=== PATIENT | female | born 1995 | race Caucasian/White ===

== ENCOUNTER 2022-01-05 20:04 | Emergency (ER) | payer BC, SELFPAY ==
[2022-01-05 20:23] VITALS: BP 117/72; PULSE 97; RESP 16; TEMP 36.6; O2SAT 96; BMI 44.2
--- NOTE | 2022-01-05 20:31 | XRR_ITS ---
PROCEDURE INFORMATION: Exam: XR Chest Exam date and time: 01/05/2022 8:52 PM Age: 26 years old Clinical indication: Chest wall pain; Additional info: Cp TECHNIQUE: Imaging protocol: Radiologic exam of the chest. Views: 1 view. COMPARISON: CR Chest 2 views* [id number] 11/21/2016 8:27 PM FINDINGS: Lungs: Unremarkable. No consolidation. Pleural spaces: Unremarkable. No pleural effusion. No pneumothorax. Heart/Mediastinum: Unremarkable. No cardiomegaly. Bones/joints: Unremarkable. XR/XR chest 1V portable [id number] IMPRESSION: No acute findings.
--- NOTE | 2022-01-05 20:41 | ECG_ITS ---
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 Measurements Intervals [place] Rate: 91 P: 46 ME: 190 QRS: 46 QRSD: 88 T: 39 QT: 339 QTc: 417 Interpretive Statements SINUS RHYTHM POSSIBLE LEFT ATRIAL ENLARGEMENT [-0.1mV P-WAVE IN V1/V2] Compared to ECG 11/21/2016 19:32:27 No significant changes Electronically Signed On 01-07-2022 8:01:03 CDT by Lisset Weller M.D. [id number]
[2022-01-05 20:50] VITALS: BP 117/72; PULSE 97; RESP 16; TEMP 36.6; O2SAT 96
--- NOTE | 2022-01-05 20:50 | W.ED.CHESTPA ---
HPI - Chest Pain General: Chief Complaint: Chest Pain Stated Complaint: chest pain, sob Time Seen by Provider: 01/05/22 20:34 History of Present Illness: Patient is a 26-year-old female comes to the ED with chest pain. Patient has a history of anxiety. Denies any history of panic attacks. Symptoms started this morning when she woke up. She felt a sharp pain in right side of chest. Chest pain resolved in the morning after she coughed. Then while at work the chest pain came back and she describes it as an aching pain in the right side of the chest. She also endorses having some irritation type feeling in throat. She rates her pain currently a 3 out of 10. Chest pain worsens if she takes a deep breath. Patient endorses to drinking a lot of soda daily. Denies any diaphoresis, nausea/vomiting, fevers, chills, abdominal pain, bladder or bowel symptoms. Denies any chance of being . Associated symptoms: Reports dyspnea; Deny abdominal pain, fever(s), nausea, palpitations or vomiting Review of Systems Const: Denies: fever(s), chills or fatigue Eyes: Denies: change in vision or eye discomfort ENMT: Denies: throat pain, odynophagia, nasal discharge or nasal congestion Card: Reports: chest pain; Denies: palpitations, edema, swelling of feet/ankles, dyspnea on exertion or orthopnea Resp: Reports: dyspnea; Denies: productive cough or non-productive cough GI: Denies: abdominal pain, nausea, vomiting, diarrhea, constipation or hematochezia : Denies: flank pain, dysuria or hematuria Musc: Denies: neck pain, back pain or extremity swelling Skin/Breast: Denies: rash or new lesions Neuro: Denies: headache(s), numbness in extremities or weakness in extremities PFS ED PFSH: Medical History (Updated 01/06/22 @ 03:20 by DAVIE Martínez) No pertinent family history Surgical History (Updated 01/06/22 @ 03:20 by DAVIE Martínez) No pertinent past surgical history Female Reproductive History: Date of last menstrual period: 12/27/21 Physical Exam Const: COMMON NORMALS: no acute distress, patient oriented x3 and alert GENERAL APPEARANCE: cooperative NUTRITIONAL APPEARANCE: obese HENMT: COMMON NORMALS: normocephalic HEAD & SCALP: normocephalic MOUTH: Normal oral and palatal mucosa present THROAT: posterior oropharynx normal and uvula midline Neck/C-Spine: COMMON NORMALS: supple GENERAL: Yes normal visual inspection Resp: COMMON NORMALS: normal respiratory effort, No retractions, No use of accessory muscles and clear to auscultation bilaterally AUSCULTATION: clear to auscultation bilaterally Cardio: COMMON NORMALS: regular rate, regular rhythm, S1 normal heart sound present, S2 normal heart sound present, No gallops present (Cardio), No clicks present (Cardio), No murmurs present (Cardio) and Peripheral pulses 2+ throughout RATE: regular rate RHYTHM: regular rhythm HEART SOUNDS: S1 normal heart sound present and S2 normal heart sound present PERIPHERAL PULSES: Peripheral pulses 2+ throughout GI: COMMON NORMALS: Normal to inspection, nondistended, normoactive bowel sounds present, Soft to palpation, non-tender and no masses PALPATION: Yes Soft to palpation : COMMON NORMALS: Yes no CVA tenderness BLADDER/KIDNEY EXAM: Yes no CVA tenderness Back/Pelvis: COMMON NORMALS: no CVA tenderness Extremity: COMMON NORMALS: normal to inspection Neuro: COMMON NORMALS: patient oriented x3 SENSORIUM/ORIENTATION: Yes alert GAIT: Yes Normal gait present Skin: GENERAL SKIN EXAM: dry skin Course ED course: Patient's symptoms improved after she got GI cocktail and p.o. Ativan. Vital Signs: Vital signs: Vital Signs Temperature 97.9 F 01/05/22 20:50 Pulse Rate 97 01/05/22 20:50 Respiratory Rate 16 01/05/22 20:50 Blood Pressure 117/72 01/05/22 20:50 Pulse Oximetry 96 01/05/22 20:50 Oxygen Delivery Me thod 01/05/22 20:50 MDM - Chest Pain Medical Decision Making Patient is a 26-year-old female comes to the ED with chest pain. Vitals are stable and patient appears nontoxic in no acute distress or pain. The rest of exam is benign. Chest x-ray showed no acute findings. CBC and CMP were unremarkable. Troponin negative. hCG negative. EKG showed normal sinus rhythm with no ST segment elevation or depression seen. Patient was given GI cocktail and p.o. Ativan and her symptoms improved. She was diagnosed with noncardiac chest pain and was stable for discharge home. Told to follow-up with her PCP in the next week for reevaluation. Return to ED precautions given. Patient understood and agreed with plan. Lab Data I reviewed the patient's lab results. : 01/05/22 21:01/05/22 21: Radiology Impressions Chest X-Ray 01/05/22: IMPRESSION: No acute findings. Laboratory Results WBC 9.6 10^3/uL (4.0-10.0) 01/05/22: RBC 5.48 10^6/uL (4.1-5.3) H 01/05/22 21: Hgb 13.5 g/dL (11.5-15.3) 01/05/22: Hct 44.2 % (37.0-47.0) 01/05/22: MCV 80.7 fl (81-99) L 01/05/22 21: MCH 24.6 pg (28.0-34.0) L 01/05/22: MCHC 30.5 g/dL (30.0-36.0) 01/05/22: RDW 17.2 % (12.1-15.1) H 01/05/22: Plt Count 263 10^3/cmm (130-400) 01/05/22: MPV 10.7 fL (7.4-10.4) H 01/05/22 21: Neut % (Auto) 62.8 % 01/05/22: Lymph % (Auto) 30.2 % 01/05/22: [place] % (Auto) 4.7 % 01/05/22: Eos % (Auto) 1.6 % 01/05/22: Baso % (Auto) 0.6 % 01/05/22: Neut # (Auto) 6.01 10^3/uL (1.8-7.7) 01/05/22: Lymph # (Auto) 2.9 10^3/uL (0.8-4.8) 01/05/22: [place] # (Auto) 0.5 10^3/uL (0.2-0.9) 01/05/22: Eos # (Auto) 0.2 10^3/uL (0.0-0.8) 01/05/22 21:26 Baso # (Auto) 0.1 10^3/uL (0.0-0.1) 01/05/22 21: Nucleated RBC % (auto) 0 % 01/05/22 21: Nucleated RBCs # 0.0 /100WBC 01/05/22 21:26 Sodium 138 mmol/L (136-145) 01/05/22 21:26 Potassium 3.5 mmol/L (3.5-5.1) 01/05/22 21:26 Chloride 103 mmol/L (98-107) 01/05/22 21:26 Carbon Dioxide 25 mmol/L (22-29) 01/05/22 21:26 Anion Gap 13.5 (5-19) 01/05/22 21:26 BUN 5 mg/dL (6-20) L 01/05/22 21: Creatinine 0.7 mg/dL (0.5-0.9) 01/05/22 21:26 GFR Calculation 99.6 mL/min (90-130) 01/05/22 21:26 Glucose 93 mg/dL (65-115) 01/05/22 21: Calculated Osmolality 283 mOsm/kg (285-295) L 01/05/22 21:26 Calcium 9.3 mg/dL (8.5-10.5) 01/05/22 21: Total Bilirubin 0.2 mg/dL (0.15-1.2) 01/05/22 21: AST 17 U/L (0-32) 01/05/22 21: ALT 20 U/L (0-33) 01/05/22 21:26 Alkaline Phosphatase 68 U/L (35-105) 01/05/22 21:26 Troponin T Gen 5 ng/L 6 ng/L (0-10) 01/05/22 21:26 Total Protein 7.5 g/dL (6.6-8.7) 01/05/22 21: Albumin 3.9 g/dL (3.5-5.2) 01/05/22 21: Globulin 3.6 g/dL (1.3-4.6) 01/05/22 21:26 HCG, Qual Negative (Negative) 01/05/22 21:26 EKG Data EKG 1: EKG interpretation date: 01/05/22 Interpretation: Sinus rhythm, no ST segment elevation or depression seen. 91 bpm. Discharge Plan Discharge Patient Disposition: Home Clinical Impression: Non-cardiac chest pain Condition: Stable Discharge Orders: Discharge ED (Routine); Ordered 01/05/22 Ordered By: Spenser Omalley Referrals: Reginaldo Sanchez, DO [Primary Care Provider] - Discharge Diet: Regular Discharge Activity: Increase activity as tolerated Patient Instructions: Noncardiac Chest Pain (ED) Activity Restrictions/Additional Instructions: Follow-up with medical provider as directed in the next 5 to 7 days for reevaluation. Return to the ER or your medical provider if condition worsens. Please read and understand discharge instructions. Thank you for choosing [facility] for your healthcare needs today. Please realize this is an emergency room and that we are providing you with a medical screening exam and this may not be complete and all inclusive of all the testing and or work up that you may need to determine your ailment or severity of your illness. It is very important that you follow up as instructed or that you return to the Emergency Department should you have concerns or if your condition changes or worsens in any way. Coding Level of Care Code ED Garden Machinery Mechanic for Chg Fwd Exam Comprehensive
[2022-01-05] MEDS: lidocaine 2% viscous 15 ML, aluminum-mag hydrox-simethicon 30 ML, sucralfate oral liq 1 GM PO (20:57)
[2022-01-05] MEDS: LORazepam 1 mg Tablet PO (20:58)
[2022-01-05 21:35] LABS: Basophils # 0.1 10^3/uL (0.0-0.1); Basophils % 0.6 %; Eosinophils # 0.2 10^3/uL (0.0-0.8); Eosinophils % 1.6 %; Hematocrit 44.2 % (37.0-47.0); Hemoglobin 13.5 g/dL (11.5-15.3); Lymphocytes # 2.9 10^3/uL (0.8-4.8); Lymphocytes % 30.2 %; Mean Corpuscular HGB Conc 30.5 g/dL (30.0-36.0); Mean Corpuscular Hemoglobin 24.6 pg (28.0-34.0); Mean Corpuscular Volume 80.7 fl (81-99); Mean Platelet Volume 10.7 fL (7.4-10.4); Monocytes # 0.5 10^3/uL (0.2-0.9); Monocytes % 4.7 %; Neutrophils # 6.01 10^3/uL (1.8-7.7); Neutrophils % 62.8 %; Nucleated Red Blood Cells % 0 %; Platelet Count 263 10^3/cmm (130-400); Red Blood Count 5.48 10^6/uL (4.1-5.3); Red Cell Distribution Width 17.2 % (12.1-15.1); White Blood Count 9.6 10^3/uL (4.0-10.0)
[2022-01-05 21:53] LABS: HCG, Serum Qual Negative (Negative)
[2022-01-05 22:03] LABS: Alanine Aminotransferase 20 U/L (0-33); Albumin Level 3.9 g/dL (3.5-5.2); Alkaline Phosphatase 68 U/L (35-105); Anion Gap 13.5 (5-19); Aspartate Amino Transferase 17 U/L (0-32); Blood Urea Nitrogen 5 mg/dL (6-20); Calcium 9.3 mg/dL (8.5-10.5); Carbon Dioxide 25 mmol/L (22-29); Chloride 103 mmol/L (98-107); Globulin 3.6 g/dL (1.3-4.6); Glomerular Filtration Rate 99.6 mL/min (90-130); Glucose 93 mg/dL (65-115); Osmolality Calculated 283 mOsm/kg (285-295); Potassium 3.5 mmol/L (3.5-5.1); Sodium 138 mmol/L (136-145); Total Bilirubin 0.2 mg/dL (0.15-1.2); Total Protein 7.5 g/dL (6.6-8.7)
[2022-01-05 22:04] LABS: Troponin T (5th) Once 6 ng/L (0-10)
== END 2022-01-05 22:44 | disposition home or self-care (01) ==
PROVIDERS: Emergency Provider Physician Assistant; PCP Family Medicine
DX: R07.89 Other chest pain (principal)
CPT/HCPCS: 71045; 80053; 84484; 84703; 85025; 93005; 99284

== ENCOUNTER 2022-05-05 11:52 | Emergency (ER) | payer BC, SELFPAY ==
[2022-05-05] VITALS (7 sets, daily range): BP systolic 128; BP diastolic 70; PULSE 48–101; RESP 15–24; TEMP 36.3; O2SAT 96–100
--- NOTE | 2022-05-05 12:05 | ED_ITS ---
HPI - Abdominal Pain General: Chief Complaint: Abdominal Pain Stated Complaint: left pain on the side and hot flashes Time Seen by Provider: 05/05/22 12:04 History of Present Illness: Ms. Wong is a 26-year-old lady with history of ovarian cysts presenting to the emergency department due to severe left lower quadrant abdominal pain. Onset of symptoms was at approximately 1030 and acute. She endorses perhaps generalized nausea this morning however has otherwise been at her baseline health. Severe left lower quadrant abdominal pain that has been unrelenting. Associated nausea but no vomiting. No changes in urination or bowel movements. Denies similar episodes in the past. No other specific changes in health, exacerbating, or alleviating factors identified. Onset (ago): hour(s) Location: LLQ Severity: severe Migration to: no migration Exacerbating factors: nothing Relieving factors: nothing Associated Symptoms: Reports nausea Related Data: Date of Last Menstrual Period: 12/27/21 Review of Systems General: Reports: 10 or more systems reviewed and unremarkable except in HPI and below GI: Reports: nausea PFSH ED PFSH: Medical History (Updated 05/05/22 @ 15:28 by Partha Prince MD) No pertinent family history Surgical History (Updated 01/06/22 @ 03:20 by DAVIE Martínez) No pertinent past surgical history Female Reproductive History: Date of last menstrual period: 12/27/21 Physical Exam Const: COMMON NORMALS: alert GENERAL APPEARANCE: cooperative, well developed and in distress (Distress due to pain) HENMT: COMMON NORMALS: normocephalic and atraumatic HEAD & SCALP: normocephalic and atraumatic Eye: COMMON NORMALS: conjunctivae normal CONJUNCTIVA: Yes conjunctivae normal SCLERA: sclerae normal Neck/C-Spine: COMMON NORMALS: supple GENERAL: Yes trachea midline Resp: COMMON NORMALS: normal respiratory effort EFFORT & INSPECTION: Yes able to speak in complete sentences Cardio: COMMON NORMALS: regular rate and regular rhythm RATE: regular rate RHYTHM: regular rhythm GI: COMMON NORMALS: Soft to palpation PALPATION: Yes Soft to palpation and No Tenderness to palpation present (GI) : COMMON NORMALS: Yes no CVA tenderness BLADDER/KIDNEY EXAM: Yes no CVA tenderness Back/Pelvis: COMMON NORMALS: no CVA tenderness Extremity: GENERAL: Yes normal exam except as noted and No edema Neuro: COMMON NORMALS: moves all extremities SENSORIUM/ORIENTATION: Yes alert and No Orientation impaired Psych: COMMON NORMALS: mental status grossly normal and Normal thought process present THOUGHT PROCESS: Normal thought process present Course Vital Signs: Vital signs: Vital Signs Temperature 97.4 F L 05/05/22 12:00 Pulse Rate 71 05/05/22 17:29 Respiratory Rate 15 05/05/22 17:29 Blood Pressure 128/70 05/05/22 12:00 Pulse Oximetry 99 05/05/22 17:29 Oxygen Delivery Me thod 05/05/22 17:29 MDM - Abdominal Pain Medical Decision Making 26-year-old female presenting with left-sided abdominal pain and generalized illness. Uncomfortable appearing on initial exam however no evidence of acute peritonitis or surgical abdomen. Labs with mild hemoconcentration and dehydration, no other significant abnormality, negative urinalysis and hCG. Given severity and location of symptoms in addition to ovarian cyst history sta rted imaging with pelvic ultrasound which was negative for ovarian torsion. Patient does have right sided large cysts and is tender though still describes left-sided symptoms. Given absence of clear pathology and continued symptoms CT imaging is felt to be appropriate. CT negative for acute pathology. Cholelithiasis/incidental findings noted. Patient had moderate improvement in symptoms with multiple doses of analgesia and antiemetic. Most likely etiology of patient's symptoms is unspecified abdominal pain possibly related to ovarian cysts without evidence of acute surgical pathology. The results of ED evaluation were discussed with the patient including prescriptions and/or symptomatic cares (if applicable) including appropriate and responsible use, followup plan, and return precautions. The patient verbalized understanding and felt safe for discharge. Medical Records I reviewed the patient's medical records. Lab Data I reviewed the patient's lab results. 05/05/22 12:32 05/05/22 13:34 Labs/Radiology: Radiology Impressions Pelvis Ultrasound 05/05/22 12:14 IMPRESSION: 1. There are 2 complex right ovary cyst 2. Negative uterus and endometrium 3. Negative left ovary Abdomen/Pelvis CT 05/05/22 13:28 IMPRESSION: 1. Septated pelvic cyst likely originating in the ovary. 2. Unremarkable appearing uterus. 3. Cholelithiasis 4. Otherwise negative examination Laboratory Results WBC 8.8 10^3/uL (4.0-10.0) 05/05/22 12:32 RBC 5.59 10^6/uL (4.1-5.3) H 05/05/22 12:32 Hgb 13.5 g/dL (11.5-15.3) 05/05/22 12:32 Hct 43.2 % (37.0-47.0) 05/05/22 12:32 MCV 77.3 fl (81-99) L 05/05/22 12:32 MCH 24.2 pg (28.0-34.0) L 05/05/22 12:32 MCHC 31.3 g/dL (30.0-36.0) 05/05/22 12:32 RDW 15.9 % (12.1-15.1) H 05/05/22 12:32 Plt Count 248 10^3/cmm (130-400) 05/05/22 12:32 MPV 11.5 fL (7.4-10.4) H 05/05/22 12:32 Neut % (Auto) 42.2 % 05/05/22 12:32 Lymph % (Auto) 48.2 % 05/05/22 12:32 [place] % (Auto) 5.7 % 05/05/22 12:32 Eos % (Auto) 2.8 % 05/05/22 12:32 Baso % (Auto) 0.8 % 05/05/22 12:32 Neut # (Auto) 3.72 10^3/uL (1.8-7.7) 05/05/22 12:32 Lymph # (Auto) 4.3 10^3/uL (0.8-4.8) 05/05/22 12:32 [place] # (Auto) 0.5 10^3/uL (0.2-0.9) 05/05/22 12:32 Eos # (Auto) 0.3 10^3/uL (0.0-0.8) 05/05/22 12:32 Baso # (Auto) 0.1 10^3/uL (0.0-0.1) 05/05/22 12:32 Nucleated RBC % (auto) 0 % 05/05/22 12:32 Nucleated RBCs # 0.0 /100WBC 05/05/22 12:32 Sodium 135 mmol/L (136-145) L 05/05/22 13:34 Potassium 3.3 mmol/L (3.5-5.1) L 05/05/22 13:34 Chloride 102 mmol/L (98-107) 05/05/22 13:34 Carbon Dioxide 22 mmol/L (22-29) 05/05/22 13:34 Anion Gap 14.3 (5-19) 05/05/22 13:34 BUN 8 mg/dL (6-20) 05/05/22 13:34 Creatinine 0.5 mg/dL (0.5-0.9) 05/05/22 13:34 GFR Calculation 146.9 mL/min (90-130) H 05/05/22 13:34 Glucose 124 mg/dL (65-115) H 05/05/22 13:34 Calculated Osmolality 280 mOsm/kg (285-295) L 05/05/22 13:34 Calcium 9.4 mg/dL (8.5-10.5) 05/05/22 13:34 Total Bilirubin 0.2 mg/dL (0.15-1.2) 05/05/22 13:34 AST 19 U/L (0-32) 05/05/22 13:34 ALT 15 U/L (0-33) 05/05/22 13:34 Alkaline Phosphatase 67 U/L (35-105) 05/05/22 13:34 Total Protein 8.0 g/dL (6.6-8.7) 05/05/22 13:34 Albumin 4.1 g/dL (3.5-5.2) 05/05/22 13:34 Globulin 3.9 g/dL (1.3-4.6) 05/05/22 13:34 Lipase 31 U/L (13-60) 05/05/22 13:34 HCG, Qual Negative (Negative) 05/05/22 13:34 Urine Color Yellow (Yellow) 05/05/22 14:44 Urine Appearance Clear (CLEAR) 05/05/22 14:44 Urine pH 5 (5-7) 05/05/22 14:44 Ur Specific [place] 1.015 (1.005-1.030) 05/05/22 14:44 Urine Protein Neg (Negative) 05/05/22 14:44 Urine Glucose (UA) Norm (Normal) 05/05/22 14:44 Urine Ketones 1+ (Negative) H 05/05/22 14:44 Urine Blood Neg (Negative) 05/05/22 14:44 Urine Nitrate Negative (Negative) 05/05/22 14:44 Urine Bilirubin Neg (Negative) 05/05/22 14:44 Urine Urobilinogen Norm mg/dL (Negative) 05/05/22 14:44 Ur Leukocyte Esterase Negative (Negative) 05/05/22 14:44 Discharge Plan Discharge Patient Disposition: Home Clinical Impression: Abdominal pain, Ovarian cyst Condition: Stable Prescriptions: New ondansetron 4 mg tablet,disintegrating 4 mg PO Q8H PRN (Reason: nausea and vomiting) Qty: 15 0RF oxycodone 5 mg tablet 5 mg PO Q4H PRN (Reason: pain) Qty: 10 0RF Discharge Orders: Discharge ED (Routine); Ordered 05/05/22 Ordered By: Partha Prince Referrals: Reginaldo Sanchez DO [Primary Care Provider] - Partha Prince MD [Emergency Provider] - Discharge Diet: Usual diet Discharge Activity: Increase activity as tolerated Patient Instructions: Ovarian Cyst (ED), Abdominal Pain (ED), Opioid Safety, Pain Management Activity Restrictions/Additional Instructions: Thank you for visiting the emergency department. You were seen and evaluated for abdominal pain. The exact cause of your abdominal pain is unclear however may be related to large right ovarian cysts. I recommend follow-up with your primary care provider and a SELF PROPELLED MINING MACHINE OPERATOR physician. You may use [id number] medications such as acetaminophen and ibuprofen for pain however please do not exceed the daily recommended dosage as listed on the packaging and please keep in mind that many namebrand medications contain the same active ingredients. Please avoid these medications if previously instructed to do so by another physician due to other underlying medical condition. Return to the emergency department for uncontrolled symptoms or anything else that you are concerned about feel needs emergency department evaluation. Coding Level of Care Code ED Senior Tax Manager for Dorcas Fwbaltazar Exam Comprehensive
--- NOTE | 2022-05-05 12:14 | USR_ITS ---
PROCEDURE INFORMATION: Exam: US Nonobstetric Pelvis; Complete Exam date and time: 05/05/2022 12:42 PM Age: 26 years old Clinical indication: Pelvic pain; Additional info: Llq pain, HX cysts, eval torsion TECHNIQUE: Imaging protocol: Transabdominal pelvic nonobstetric ultrasound. Complete exam. Real time ultrasound with image documentation. COMPARISON: CT kidney stone [id number] 02/27/2016 12:27 AM FINDINGS: Uterus: Uterus is unremarkable 9.2 cm x 4.3 cm by 4.6 cm. Endometrial stripe is 3.0 mm Right ovary/adnexa: Complex cyst with low level internal echoes 6.3 cm x 5.8 cm x 4 cm, a 2nd complex cyst is present in the central right ovary 3 cm x 4 .9 cm x 4.1 cm Left ovary/adnexa: Ovary is normal. No mass. Normal blood flow. 3.3 cm x 2.3 cm x 3.3 cm by Intraperitoneal space: No intraperitoneal fluid. Urinary bladder: Normal. Vasculature: No mass. Normal blood flow. US/US pelvic complete* [id number] IMPRESSION: 1. There are 2 complex right ovary cyst 2. Negative uterus and endometrium 3. Negative left ovary
[2022-05-05] MEDS: ondansetron 2 mg/ML SDV 2 mL 4 MG IVP ×2 (12:22→15:50)
[2022-05-05] MEDS: morphine 4 mg/mL SDV 1 mL IVP (12:22)
[2022-05-05 12:43] LABS: Basophils # 0.1 10^3/uL (0.0-0.1); Basophils % 0.8 %; Eosinophils # 0.3 10^3/uL (0.0-0.8); Eosinophils % 2.8 %; Hematocrit 43.2 % (37.0-47.0); Hemoglobin 13.5 g/dL (11.5-15.3); Lymphocytes # 4.3 10^3/uL (0.8-4.8); Lymphocytes % 48.2 %; Mean Corpuscular HGB Conc 31.3 g/dL (30.0-36.0); Mean Corpuscular Hemoglobin 24.2 pg (28.0-34.0); Mean Corpuscular Volume 77.3 fl (81-99); Mean Platelet Volume 11.5 fL (7.4-10.4); Monocytes # 0.5 10^3/uL (0.2-0.9); Monocytes % 5.7 %; Neutrophils # 3.72 10^3/uL (1.8-7.7); Neutrophils % 42.2 %; Nucleated Red Blood Cells % 0 %; Platelet Count 248 10^3/cmm (130-400); Red Blood Count 5.59 10^6/uL (4.1-5.3); Red Cell Distribution Width 15.9 % (12.1-15.1); White Blood Count 8.8 10^3/uL (4.0-10.0)
[2022-05-05] MEDS: HYDROmorphone 1 mg/mL INJ 1 mL 0.5 MG IVP (13:01)
--- NOTE | 2022-05-05 13:28 | CTR_ITS ---
PROCEDURE INFORMATION: Exam: CT Abdomen And Pelvis Without Contrast Exam date and time: 05/05/2022 2:21 PM Age: 26 years old Clinical indication: Abdominal pain; Localized; Left lower quadrant (llq); Additional info: Severe llq pain TECHNIQUE: Imaging protocol: Computed tomography of the abdomen and pelvis without contrast. Radiation optimization: All CT scans at this facility use at least one of these dose optimization techniques: automated exposure control; mA and/or kV adjustment per patient size (includes targeted exams where dose is matched to clinical indication); or iterative reconstruction. COMPARISON: CT kidney stone [id number] 02/27/2016 12:27 AM RADIATION DOSE METRICS: Total DLP (mGy-cm): 1043.63 FINDINGS: Liver: Normal. No mass. Gallbladder and bile ducts: Multiple calcified stones. No ductal dilation. Pancreas: Normal. No ductal dilation. Spleen: Normal. No splenomegaly. Adrenal glands: Normal. No mass. Kidneys and ureters: Normal. No hydronephrosis. Stomach and bowel: Unremarkable. No obstruction. No mucosal thickening. Appendix: No evidence of appendicitis. Intraperitoneal space: Unremarkable. No free air. No significant fluid collection. Vasculature: Unremarkable. No abdominal aortic aneurysm. Lymph nodes: Unremarkable. No enlarged lymph nodes. Urinary bladder: Unremarkable as visualized. Reproductive: Septated cyst in the central pelvis measuring 10 cm x 6 cm. This finding appears to be adjacent to the fundus of the uterus and may represent a ovarian cyst. Comparison to prior examination this finding was not present the uterus is otherwise unremarkable Bones/joints: Osteoarthritis left sacroiliac joint No acute fracture. Soft tissues: Unremarkable. CT/CT kidney stone [id number] IMPRESSION: 1. Septated pelvic cyst likely originating in the ovary. 2. Unremarkable appearing uterus. 3. Cholelithiasis 4. Otherwise negative examination
[2022-05-05 13:59] LABS: HCG, Serum Qual Negative (Negative)
[2022-05-05 14:11] LABS: Alanine Aminotransferase 15 U/L (0-33); Albumin Level 4.1 g/dL (3.5-5.2); Alkaline Phosphatase 67 U/L (35-105); Anion Gap 14.3 (5-19); Aspartate Amino Transferase 19 U/L (0-32); Blood Urea Nitrogen 8 mg/dL (6-20); Calcium 9.4 mg/dL (8.5-10.5); Carbon Dioxide 22 mmol/L (22-29); Chloride 102 mmol/L (98-107); Globulin 3.9 g/dL (1.3-4.6); Glomerular Filtration Rate 146.9 mL/min (90-130); Glucose 124 mg/dL (65-115); Lipase 31 U/L (13-60); Osmolality Calculated 280 mOsm/kg (285-295); Potassium 3.3 mmol/L (3.5-5.1); Sodium 135 mmol/L (136-145); Total Bilirubin 0.2 mg/dL (0.15-1.2)
[2022-05-05 14:49] LABS: Add Urine Microscopic? NO; Charge for UA Resulting for Rev
[2022-05-05 15:03] LABS: Bilirubin Urine Neg (Negative); Blood Urine Neg (Negative); Glucose Urine UA Norm (Normal); Ketones Urine 1+ (Negative); Leukocyte Esterase Urine Negative (Negative); Nitrate Urine Negative (Negative); Protein Urine Neg (Negative); Specific Gravity, Urine 1.015 (1.005-1.030); Urine Appearance Clear (CLEAR); Urine Color Yellow (Yellow); Urobilinogen Urine Norm (Negative); pH Urine 5 (5-7)
[2022-05-05] MEDS: oxyCODONE 5 mg IR Tab/Cap PO (15:18)
[2022-05-05] MEDS: potassium chloride ER 20 mEq Tablet 40 MEQ PO (15:19)
[2022-05-05] MEDS: acetaminophen 500 mg Tablet 1000 MG PO (15:20)
[2022-05-05] MEDS: ketorolac 30 mg/mL INJ 15 MG IVP (15:20)
[2022-05-05] MEDS: sodium chloride 0.9% 1,000 ML 999 ML IV (15:20)
[2022-05-05] MEDS: HYDROmorphone 1 mg/mL INJ 1 mL 0.4 MG IVP (16:08)
[2022-05-05] MEDS: haloperidol inj 5 mg/mL INJ 1 mL 1 MG IVP (16:08)
--- NOTE | 2022-05-06 08:56 | DCPLANNER ---
Addendum entered by Mckayla Garza 05/24/22 10:49: Patient had a follow up appointment scheduled with [facility] - patient did attend appointment Addendum entered by Mckayla Garza 05/07/22 14:03: Patient has a follow up appointment scheduled for , May 16, 2022 at 2:00 with Yusef at [facility]. Clinic will call patient with appointment information. Original Note: manager labor delivery had message to schedule a follow up appointment for patient with [facility]. manager labor delivery sent patients information to the front office staff at [facility]. Patients information will be printed and reviewed. Clinic will call patient with appointment information.
== END 2022-05-05 17:23 | disposition home or self-care (01) ==
PROVIDERS: Emergency Provider Emergency Medicine; PCP Family Medicine
DX: R10.32 Left lower quadrant pain (principal); N83.291 Other ovarian cyst, right side
CPT/HCPCS: 36415; 74176; 76856; 80053; 81003; 83690; 84703; 85025; 96374; 96375; 96376; 99285; J1170; J1630; J1885; J2270; J2405; J7030

== ENCOUNTER → 2022-05-16 14:50 | Outpatient (BNVA) | payer BC, SELFPAY | PROVIDERS: PCP Family Medicine; Visit Provider Nurse Practitioner Women's Health | DX: N83.202 Unspecified ovarian cyst, left side (principal) | CPT/HCPCS: 81500 ==

== ENCOUNTER 2022-07-18 13:18 | Emergency (ER) | payer BC, SELFPAY ==
[2022-07-18 13:42] VITALS: BP 133/83; PULSE 71; RESP 18; TEMP 36.6; O2SAT 97
[2022-07-18 14:37] LABS: Basophils % 0.6 %; Eosinophils # 0.1 10^3/uL (0.0-0.8); Eosinophils % 0.7 %; Hematocrit 43.8 % (37.0-47.0); Hemoglobin 13.2 g/dL (11.5-15.3); Lymphocytes # 1.6 10^3/uL (0.8-4.8); Lymphocytes % 23.2 %; Mean Corpuscular HGB Conc 30.1 g/dL (30.0-36.0); Mean Corpuscular Volume 76.2 fl (81-99); Mean Platelet Volume 10.4 fL (7.4-10.4); Monocytes # 0.3 10^3/uL (0.2-0.9); Monocytes % 4.1 %; Neutrophils # 4.87 10^3/uL (1.8-7.7); Neutrophils % 71.1 %; Nucleated Red Blood Cells % 0 %; Platelet Count 306 10^3/cmm (130-400); Red Blood Count 5.75 10^6/uL (4.1-5.3); Red Cell Distribution Width 17.1 % (12.1-15.1); White Blood Count 6.9 10^3/uL (4.0-10.0)
[2022-07-18 14:49] VITALS: BP 143/85; PULSE 61; RESP 18; O2SAT 97
[2022-07-18 14:58] LABS: HCG, Serum Qual Negative (Negative)
[2022-07-18 15:01] LABS: Alanine Aminotransferase 14 U/L (0-33); Albumin Level 4.2 g/dL (3.5-5.2); Alkaline Phosphatase 69 U/L (35-105); Anion Gap 15.4 (5-19); Aspartate Amino Transferase 16 U/L (0-32); Blood Urea Nitrogen 5 mg/dL (6-20); Calcium 9.5 mg/dL (8.5-10.5); Carbon Dioxide 25 mmol/L (22-29); Chloride 103 mmol/L (98-107); Globulin 3.5 g/dL (1.3-4.6); Glomerular Filtration Rate 146.9 mL/min (90-130); Glucose 108 mg/dL (65-115); Lipase 36 U/L (13-60); Osmolality Calculated 286 mOsm/kg (285-295); Potassium 4.4 mmol/L (3.5-5.1); Sodium 139 mmol/L (136-145); Total Bilirubin 0.2 mg/dL (0.15-1.2); Total Protein 7.7 g/dL (6.6-8.7)
[2022-07-18 16:48] VITALS: BP 129/88; PULSE 70; RESP 17; TEMP 36.7; O2SAT 97
--- NOTE | 2022-07-29 15:57 | DCPLANNER ---
Addendum entered by Mckayla Garza 08/01/22 14:39: Patient had a follow up appointment scheduled with [facility] Radha Martinez - patient did not attend appointment. Addendum entered by Mckayla Garza 07/29/22 15:58: barn and property manager called [facility] - gave clinic patients information, a follow up appointment was scheduled for July at 11:[address] Martinez. barn and property manager called patient with appointment information. Original Note: 3.11.23 - patient was called due to no primary care physician - patient stated that she would like help in getting established with a provider.
== END 2022-07-18 18:03 | disposition left against medical advice (07) ==
LOC: ER 13:25
PROVIDERS: Physician Assistant; Emergency Provider Family Medicine
DX: Z53.21 Procedure and treatment not carried out due to patient leaving prior to being seen by health care provider (principal)
CPT/HCPCS: 36415; 80053; 83690; 84703; 85025

== ENCOUNTER 2022-10-17 12:41 | Emergency (ER) | payer BC, SELFPAY ==
[2022-10-17 12:43] VITALS: BMI 44.2
[2022-10-17 12:47] VITALS: BP 140/84; PULSE 62; RESP 16; TEMP 36.5; O2SAT 98
--- NOTE | 2022-10-17 13:12 | CT_ITS ---
WS: [id number] CT ABDOMEN AND PELVIS NONCONTRAST HISTORY: LEFT flank pain TECHNIQUE: Imaging performed through the abdomen and pelvis. Coronal and sagittal reformats are submi tted. All CT scans at [facility] use at least one of these dose optimization techniques: auto mated exposure control; mA and/or kV adjustment per patient size (includes targeted exams where dose is matched to clinical indication); or iterative reconstruction. DLP: 1090.67 mGy.cm COMPARISON: 05/05/2022, 02/27/2016, pelvic ultrasound 05/05/2022 Lower thorax: Stable 5 mm nodule RIGHT middle lobe. Mild enlargement the heart. Liver: Mildly prominent heterogeneous liver. Liver is enlarged and extends to the LEFT upper quadrant . Gallbladder: Normally distended gallbladder with stones. No pericholecystic fluid. Pancreas: Normal size and attenuation. Normal pancreatic duct. No pancreatitis or mass. Spleen: Normal. Adrenal glands: Normal. No mass. Right kidney: Normal size kidney with no mass or hydronephrosis. Left kidney: Normal size kidney with no mass or hydronephrosis. Aorta: Normal abdominal aorta, no aneurysm or atherosclerosis. There is mild soft tissue inflammation at the celiac axis and SMA which was also present on the prior study. No free fluid, intraperitoneal air or significant lymphadenopathy. GI tract: Normal noncontrast imaging of the stomach, small bowel and colon. No obstruction or wall th ickening. Normal appendix. Abdominal wall: Negative. No hernia. Pelvis: No free fluid in the pelvis. The uterus is midline. There is a cystic mass which sits anterio r and superior to the uterine fundus. Complex cystic mass with septations measures transversely 9.7 c m, AP by 7.2 cm and superior inferior 8.2 cm. The cystic mass was also described on 05/05/2022 with m inimal increase in size. May be associated with the LEFT ovary. The RIGHT ovary cyst posterior to the cystic mass. The LEFT ovary is inseparable from the cystic mass. Osseous structures: Unremarkable. CT/CT kidney stone [id number] IMPRESSION: 1. Large cystic mass centered in the pelvis, anterior and superior to the uter ine fundus. Mass measures 9.7 x 7.2 x 8.2 cm and was previously described on with minimal increase in size. There is no ascites. The RIGHT ovary is identified as a separate structure. Favor this may be the LEFT ovary or part o f the fallopian tube. Due to its large size and cystic components with possible septation CLAM PICKER evaluation and possible removal is recommended. Patient is at [facility] for ovarian torsion due to position of this cystic mass and size. 2. No renal obstruction. 3. Cholelithiasis without acute cholecystitis. Notified Jacki Luo MD at 10/17/2022 2:55 PM.
--- NOTE | 2022-10-17 13:13 | ED_ITS ---
HPI - Back Pain/Injury General: Chief Complaint: Back Pain/Injury Stated Complaint: low back pain Time Seen by Provider: 10/17/22 12:56 Source: patient Mode of arrival: ambulatory Limitations: no limitations History of Present Illness: 26-year-old female states that she has been having left flank pain since last night states it got much worse today she states a very severe pain in that left flank with some radiation to her groin she has had nausea denies any vomiting states pain is an 8 out of 10 denies any worsening improving factors is not worse with movement or rest. Associated symptoms: Reports nausea; Deny abdominal pain, chills, dysuria, fever(s) or vomiting Review of Systems Const: Denies: fever(s) or chills Eyes: Denies: eye discomfort ENMT: Denies: throat pain or dental pain Card: Denies: chest pain Resp: Denies: dyspnea GI: Reports: nausea; Denies: abdominal pain or vomiting : Reports: flank pain; Denies: dysuria Musc: Denies: neck pain or back pain Skin/Breast: Denies: rash Neuro: Denies: headache(s) PFSH ED PFSH: Medical History No pertinent family history Surgical History No pertinent past surgical history Family History Father Diabetes Family history of thyroid problem Heart disease Grandmother Diabetes paternal Stroke maternal Grandfather Diabetes paternal Denies family history of Colon cancer Ovarian cancer Breast cancer Hypertension Uterine cancer Hyperchloremia Female Reproductive History: Date of last menstrual period: 10/14/22 Physical Exam Const: COMMON NORMALS: no acute distress, patient oriented x3 and healthy appearing HENMT: COMMON NORMALS: normocephalic and atraumatic HEAD & SCALP: normocephalic and atraumatic Neck/C-Spine: COMMON NORMALS: full ROM and supple Chest: COMMONS NORMALS: normal inspection of the chest and normal palpation of entire chest wall Resp: COMMON NORMALS: normal respiratory effort, No retractions, No use of accessory muscles and clear to auscultation bilaterally AUSCULTATION: clear to auscultation bilaterally Cardio: COMMON NORMALS: regular rate, regular rhythm and No murmurs present (Cardio) RATE: regular rate RHYTHM: regular rhythm GI: COMMON NORMALS: Normal to inspection, nondistended, normoactive bowel sounds present, Soft to palpation, non-tender and no masses PALPATION: Yes Soft to palpation Extremity: COMMON NORMALS: normal to inspection and full ROM Neuro: COMMON NORMALS: patient oriented x3, moves all extremities and no focal motor deficits Psych: COMMON NORMALS: mental status grossly normal, Normal thought process present and cooperative THOUGHT PROCESS: Normal thought process present Skin: COMMON NORMALS: no rashes or lesions noted and no wounds GENERAL SKIN EXAM: no rashes or lesions noted Course Vital Signs: Vital signs: Vital Signs Temperature 97.7 F 10/17/22 12:47 Pulse Rate 51 L 10/17/22 15:00 Respiratory Rate 14 10/17/22 15:00 Blood Pressure 119/68 10/17/22 15:00 Pulse Oximetry 98 10/17/22 15:00 Oxygen Delivery Me thod Room Air 10/17/22 15:00 MDM - Back Pain/Injury Medical Decision Making Patient presents with flank pain and since resolved her CT does show a cystic mass was seen in April asked her she never followed up and she states she had forgotten to. Exam here is now benign informed is very important that she follows with HOSPITAL ADMISSIONS OFFICER and 1 to 2 weeks if she has any worsening pain she is to return she understands and agrees to the plan. Medical Records I reviewed the patient's medical records. Labs I reviewed the patient's lab results. 10/17/22 13:18 10/17/22 13:18 Radiology Impressions Abdomen/Pelvis CT 10/17/22 13:12 IMPRESSION: 1. Large cystic mass centered in the pelvis, anterior and superior to the u terine fundus. Mass measures 9.7 x 7.2 x 8.2 cm and was previously described on 05/05/2022 with minimal increase in size. There is no ascites. The RIGHT ovary is identified as a separate structure. Favor this may be the LEFT ovary or part of the fallopian tube. Due to its large size and cystic components with possible septation RETAIL AREA MANAGER evaluation and possible removal is recommended. Patient is at risk for ovarian torsion due to position of this cystic mass and size. 2. No renal obstruction. 3. Cholelithiasis without acute cholecystitis. Notified Jacki Luo MD at 10/17/2022 2:55 PM. Laboratory Results WBC 6.1 10^3/uL (4.0-10.0) 10/17/22 13:18 RBC 4.98 10^6/uL (4.1-5.3) 10/17/22 13:18 Hgb 11.9 g/dL (11.5-15.3) 10/17/22 13:18 Hct 38.9 % (37.0-47.0) 10/17/22 13:18 MCV 78.1 fl (81-99) L 10/17/22 13:18 MCH 23.9 pg (28.0-34.0) L 10/17/22 13:18 MCHC 30.6 g/dL (30.0-36.0) 10/17/22 13:18 RDW 17.1 % (12.1-15.1) H 10/17/22 13:18 Plt Count 253 10^3/cmm (130-400) 10/17/22 13:18 MPV 10.4 fL (7.4-10.4) 10/17/22 13:18 Neut % (Auto) 58.5 % 10/17/22 13:18 Lymph % (Auto) 33.7 % 10/17/22 13:18 [place] % (Auto) 5.7 % 10/17/22 13:18 Eos % (Auto) 1.1 % 10/17/22 13:18 Baso % (Auto) 0.7 % 10/17/22 13:18 Neut # (Auto) 3.59 10^3/uL (1.8-7.7) 10/17/22 13:18 Lymph # (Auto) 2.1 10^3/uL (0.8-4.8) 10/17/22 13:18 [place] # (Auto) 0.4 10^3/uL (0.2-0.9) 10/17/22 13:18 Eos # (Auto) 0.1 10^3/uL (0.0-0.8) 10/17/22 13:18 Baso # (Auto) 0.0 10^3/uL (0.0-0.1) 10/17/22 13:18 Nucleated RBC % (auto) 0 % 10/17/22 13:18 Nucleated RBCs # 0.0 /100WBC 10/17/22 13:18 Sodium 139 mmol/L (136-145) 10/17/22 13:18 Potassium 3.5 mmol/L (3.5-5.1) 10/17/22 13:18 Chloride 104 mmol/L (98-107) 10/17/22 13:18 Carbon Dioxide 26 mmol/L (22-29) 10/17/22 13:18 Anion Gap 12.5 (5-19) 10/17/22 13:18 BUN 7 mg/dL (6-20) 10/17/22 13:18 Creatinine 0.5 mg/dL (0.5-0.9) 10/17/22 13:18 GFR Calculation 146.9 mL/min (90-130) H 10/17/22 13:18 Glucose 96 mg/dL (65-115) 10/17/22 13:18 Calculated Osmolality 286 mOsm/kg (285-295) 10/17/22 13:18 Calcium 9.1 mg/dL (8.5-10.5) 10/17/22 13:18 Total Bilirubin 0.2 mg/dL (0.15-1.2) 10/17/22 13:18 AST 21 U/L (0-32) 10/17/22 13:18 ALT 23 U/L (0-33) 10/17/22 13:18 Alkaline Phosphatase 52 U/L (35-105) 10/17/22 13:18 Total Protein 7.2 g/dL (6.6-8.7) 10/17/22 13:18 Albumin 4.0 g/dL (3.5-5.2) 10/17/22 13:18 Globulin 3.2 g/dL (1.3-4.6) 10/17/22 13:18 Lipase 29 U/L (13-60) 10/17/22 13:18 HCG, Qual Negative (Negative) 10/17/22 13:18 Urine Color Yellow (Yellow) 10/17/22 13:09 Urine Appearance Sl cloudy (CLEAR) A 10/17/22 13:09 Urine pH 6 (5-7) 10/17/22 13:09 Ur Specific [place] 1.025 (1.005-1.030) 10/17/22 13:09 Urine Protein Neg (Negative) 10/17/22 13:09 Urine Glucose (UA) Norm (Normal) 10/17/22 13:09 Urine Ketones Negative (Negative) 10/17/22 13:09 Urine Blood 3+ (Negative) H 10/17/22 13:09 Urine Nitrate Negative (Negative) 10/17/22 13:09 Urine Bilirubin Neg (Negative) 10/17/22 13:09 Urine Urobilinogen Norm mg/dL (Negative) 10/17/22 13:09 Ur Leukocyte Esterase Negative (Negative) 10/17/22 13:09 Urine RBC 10-15 /hpf (0-2) H 10/17/22 13:09 Urine WBC 5-10 /hpf (0-5) H 10/17/22 13:09 Ur Squamous Epith Cells 10-15 /hpf (0-5) H 10/17/22 13:09 Amorphous Sediment Not Reportable 10/17/22 13:09 Urine Bacteria 1+ /hpf (NONE) H 10/17/22 13:09 Urine Mucus 1+ /hpf 10/17/22 13:09 Discharge Plan Discharge Patient Disposition: Home Clinical Impression: Ovarian cyst, Pelvic mass Condition: Stable Prescriptions: New hydrocodone-acetaminophen 5-325 mg tablet 1 tab PO Q6H PRN (Reason: pain) Qty: 14 0RF ondansetron 4 mg tablet,disintegrating 4 mg PO Q6H PRN (Reason: nausea and vomiting) Qty: 14 0RF No Action ibuprofen 200 mg capsule 200 mg PO Q6H PRN (Reason: Pain) Discharge Orders: Discharge ED (Routine); Ordered 10/17/22 Ordered By: Jacki Luo Referrals: Demi Nelson MD [Physician] - 1-3 days Discharge Diet: Advance as tolerated Discharge Activity: Resume usual activity Patient Instructions: Ovarian Cyst (ED), Opioid Safety Coding Level of Care Code ED 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
[2022-10-17] MEDS: sodium chloride 0.9% 1,000 ML 999 ML IV (13:23)
[2022-10-17] MEDS: HYDROmorphone 1 mg/mL INJ 1 mL IVP (13:24)
[2022-10-17] MEDS: ondansetron 2 mg/ML SDV 2 mL 4 MG IVP (13:24)
[2022-10-17 13:36] VITALS: BP 116/64; PULSE 50; RESP 16; O2SAT 96
[2022-10-17 13:47] LABS: Basophils % 0.7 %; Eosinophils # 0.1 10^3/uL (0.0-0.8); Eosinophils % 1.1 %; Hematocrit 38.9 % (37.0-47.0); Hemoglobin 11.9 g/dL (11.5-15.3); Lymphocytes # 2.1 10^3/uL (0.8-4.8); Lymphocytes % 33.7 %; Mean Corpuscular HGB Conc 30.6 g/dL (30.0-36.0); Mean Corpuscular Hemoglobin 23.9 pg (28.0-34.0); Mean Corpuscular Volume 78.1 fl (81-99); Mean Platelet Volume 10.4 fL (7.4-10.4); Monocytes # 0.4 10^3/uL (0.2-0.9); Monocytes % 5.7 %; Neutrophils # 3.59 10^3/uL (1.8-7.7); Neutrophils % 58.5 %; Nucleated Red Blood Cells % 0 %; Platelet Count 253 10^3/cmm (130-400); Red Blood Count 4.98 10^6/uL (4.1-5.3); Red Cell Distribution Width 17.1 % (12.1-15.1); White Blood Count 6.1 10^3/uL (4.0-10.0)
[2022-10-17 13:52] LABS: Urine Color Yellow (Yellow)
[2022-10-17 13:53] LABS: Add Urine Culture? No; Add Urine Microscopic? YES; Bacteria Urine 1+ /hpf; Bilirubin Urine Neg (Negative); Blood Urine 3+ (Negative); Glucose Urine UA Norm (Normal); Ketones Urine Negative (Negative); Leukocyte Esterase Urine Negative (Negative); Mucus Urine 1+ /hpf; Nitrate Urine Negative (Negative); Protein Urine Neg (Negative); Specific Gravity, Urine 1.025 (1.005-1.030); Urobilinogen Urine Norm (Negative); pH Urine 6 (5-7)
[2022-10-17 13:54] LABS: Alanine Aminotransferase 23 U/L (0-33); Alkaline Phosphatase 52 U/L (35-105); Anion Gap 12.5 (5-19); Aspartate Amino Transferase 21 U/L (0-32); Blood Urea Nitrogen 7 mg/dL (6-20); Calcium 9.1 mg/dL (8.5-10.5); Carbon Dioxide 26 mmol/L (22-29); Chloride 104 mmol/L (98-107); Globulin 3.2 g/dL (1.3-4.6); Glomerular Filtration Rate 146.9 mL/min (90-130); Glucose 96 mg/dL (65-115); Lipase 29 U/L (13-60); Osmolality Calculated 286 mOsm/kg (285-295); Potassium 3.5 mmol/L (3.5-5.1); Sodium 139 mmol/L (136-145); Total Bilirubin 0.2 mg/dL (0.15-1.2); Total Protein 7.2 g/dL (6.6-8.7)
[2022-10-17 14:00] VITALS: BP 137/78; PULSE 49; RESP 14; O2SAT 99
[2022-10-17 14:08] LABS: HCG, Serum Qual Negative (Negative)
[2022-10-17 15:00] VITALS: BP 119/68; PULSE 51; RESP 14; O2SAT 98
--- NOTE | 2022-10-18 09:10 | DCPLANNER ---
Addendum entered by Mckayla Garza 10/30/22 10:22: Patient had a follow up appointment scheduled with [facility] - patient did not attend appointment Addendum entered by Mckayla Garza 10/23/22 11:01: Patient has a follow up appointment scheduled for Friday, October 28, 2022 at 8:[address] Childress at [facility]. Addendum entered by Mckayla Garza 10/22/22 09:30: spd manager received the following message from [facility] regarding follow up appointment: Attempted to call patient to schedule, LVM//JS Original Note: spd manager had message to schedule a follow up appointment for patient with GARAGE LABORER. spd manager sent patients information to the front office staff at [facility]. Patients information will be printed and reviewed. Clinic will call patient with appointment information.
--- NOTE | 2022-10-18 09:59 | DCPLANNER ---
pst manager called patient due to no primary care physician - no answer at this time.
== END 2022-10-17 15:23 | disposition home or self-care (01) ==
PROVIDERS: Emergency Provider Emergency Medicine
DX: R19.00 Intra-abdominal and pelvic swelling, mass and lump, unspecified site (principal); N83.209 Unspecified ovarian cyst, unspecified side; K80.20 Calculus of gallbladder without cholecystitis without obstruction
CPT/HCPCS: 74176; 80053; 81001; 83690; 84703; 85025; 96361; 96374; 96375; 99285; J1170; J2405; J7030

== ENCOUNTER → 2022-12-21 13:34 | Outpatient (BNVA) | payer BC, SELFPAY | PROVIDERS: Visit Provider Nurse Practitioner Family | DX: R35.0 Frequency of micturition (principal); R10.9 Unspecified abdominal pain | CPT/HCPCS: 81000 ==

== ENCOUNTER 2023-01-30 07:58 | Emergency (ER) | payer BC, SELFPAY ==
[2023-01-30 08:04] VITALS: BP 152/102; PULSE 70; TEMP 36.7; O2SAT 99; BMI 42.9
--- NOTE | 2023-01-30 08:05 | W.ED.FEMALGU ---
HPI - Female Genitourinary General: Chief complaint: Abdominal Pain Stated complaint: left lower side cramping, forgot a tampon in Time Seen by Provider: 01/30/23 08:02 Source: patient Mode of arrival: ambulatory Limitations: no limitations History of Present Illness: Patient is a 27-year-old female presents to ED today with complaint of left-sided pelvic cramping. She states approximately 4 to 5 days ago she began having some left-sided pelvic pain and cramping. She thought it was secondary to her menstrual cycle starting so she placed a tampon as she was going to work for the day. She states she must of forgot about the tampon because several days later she was straining to have a bowel movement and felt like she pushed the tampon out. She states there was no string attached to it so thinks it may be retained. She states she never actually started her menstrual cycle until today. She states she has placed a new tampon today because of this. She has a known left sided pelvic mass seen on CT imaging several months ago. States she was supposed to follow-up with [facility] but as not. She denies vaginal discharge/odor. No new sexual partners or concerns for STDs. CT from 10/2022 with abnormal pelvic findings below: 1.? Large cystic mass centered in the pelvis, anterior and superior to the uterine fundus. Mass measures 9.7 x 7.2 x 8.2 cm and was previously described on 05/05/2022 with minimal increase in size. There is no ascites. The RIGHT ovary is identified as a separate structure. Favor this may be the LEFT ovary or part of the fallopian tube. Due to its large size and cystic components with possible septation WILDLAND FIRE OPERATIONS SPECIALIST evaluation and possible removal is recommended. Patient is at risk for ovarian torsion due to position of this cystic mass and size. MD elicited complaint: pelvic pain Onset (ago): day(s) Associated symptoms: Deny abdominal pain, headache(s) or nausea Review of Systems Const: Denies: fever(s), chills, body aches, fatigue or malaise Resp: Denies: dyspnea GI: Denies: abdominal pain, nausea, vomiting or diarrhea : Reports: pelvic pain; Denies: flank pain, difficulty voiding, dysuria, urinary frequency, urinary urgency, urinary hesitancy, hematuria, genital lesions, genital pruritis or vaginal odor Musc: Denies: neck pain, back pain, extremity pain or joint pain Skin/Breast: Denies: rash Neuro: Denies: headache(s), numbness in extremities, weakness in extremities, sensory changes or dizziness [facility] ED PFSH: Medical History No pertinent family history Surgical History No pertinent past surgical history Family History Father Diabetes Family history of thyroid problem Heart disease Grandmother Diabetes paternal Stroke maternal Grandfather Diabetes paternal Denies family history of Colon cancer Ovarian cancer Breast cancer Hypertension Uterine cancer Hyperchloremia Physical Exam Const: COMMON NORMALS: no acute distress, patient oriented x3, no limitations, alert and well nourished GENERAL APPEARANCE: cooperative NUTRITIONAL APPEARANCE: obese ORIENTATION/CONSCIOUSNESS: Yes awake, Yes oriented to person, Yes oriented to place and Yes oriented to time Eye: COMMON NORMALS: no scleral icterus Neck/C-Spine: COMMON NORMALS: no lymphadenopathy Resp: COMMON NORMALS: normal respiratory effort and clear to auscultation bilaterally AUSCULTATION: clear to auscultation bilaterally Cardio: COMMON NORMALS: regular rate and regular rhythm RATE: regular rate RHYTHM: regular rhythm GI: COMMON NORMALS: Normal to inspection, nondistended, normoactive bowel sounds present, Soft to palpation, No hepatosplenomegaly present and no masses INSPECTION: Yes normal to inspection AUSCULTATION: Yes normoactive bowel sounds PALPATION: Yes Soft to palpation, Yes Tenderness to palpation present (GI) (L pelvis ), No Guarding due to palpation present (GI), No Rigid due to palpation and Yes No hepatosplenomegaly present : COMMON NORMALS: Yes no CVA tenderness, Yes normal external appearance, Yes normal appearance of the vagina and Yes normal appearance of the cervix BLADDER/KIDNEY EXAM: Yes no CVA tenderness EXTERNAL FEMALE EXAM: Yes normal appearance of the urethra SPECULUM EXAM - CERVIX: Yes Cervical os closed, No mucoid cervix and No Abnormal cervical discharge present OTHER: pt on day one menstrual cycle so there was blood in cervical os/vaginal canal that somewhat obscured exam; I do not visualize any retained foreign bodies (i.e tampon string) Back/Pelvis: COMMON NORMALS: no CVA tenderness Extremity: COMMON NORMALS: normal to inspection GENERAL: Yes normal exam except as noted Neuro: TREMAINE COMA SCALE: document GCS findings Tremaine coma scale eye opening: Spontaneous Tremaine coma scale verbal response: Orientated Tremaine coma scale motor response: Obey commands Tremaine coma scale total score: 15 COMMON NORMALS: patient oriented x3 SENSORIUM/ORIENTATION: Yes alert, Yes oriented to person, Yes oriented to place and Yes oriented to time Skin: COMMON NORMALS: no rashes or lesions noted GENERAL SKIN EXAM: no rashes or lesions noted Course Vital Signs: Vital signs: Vital Signs Temperature 98.1 F 01/30/23 08:04 Pulse Rate 48 L 01/30/23 09:32 Respiratory Rate 24 H 01/30/23 09:32 Blood Pressure 152/102 01/30/23 09:32 Pulse Oximetry 98 01/30/23 09:32 Oxygen Delivery Me thod Room Air 01/30/23 09:32 MDM - Female Medical Decision Making Patient here for pelvic cramping x 4-5 days. She has a known pelvic mass that has never been followed up with. She had concerns for a possible retained tampon string but this was not visualized on pelvic exam. Has no signs or symptoms to suggest TSS. Pelvic US today showing an enlarging mass now measuring [id number]. negative. No torsion. I will have case management work on the referral to get her set up with WILDLAND FIRE OPERATIONS SPECIALIST for further evaluation. Strict return ED precautions given. Lab Data Laboratory Results HCG, Qual Negative (Negative) 01/30/23 08:36 Discharge Plan Discharge Patient Disposition: Home Clinical Impression: Pelvic mass Condition: Stable Prescriptions: New tramadol 50 mg tablet 50 mg PO Q6H PRN (Reason: pain) Qty: 14 0RF No Action ibuprofen 800 mg tablet 800 mg PO Q8H PRN (Reason: pain) Qty: 20 0RF Midol 500-25 mg Tablet 2 tab PO Q6H PRN (Reason: Menstrual Cramps) Discharge Orders: Discharge ED (Routine); Ordered 01/30/23 Ordered By: Francesca Fortune Patient Instructions: Opioid Safety, Pain Management Activity Restrictions/Additional Instructions: As we discussed it is imperative that you follow-up with gynecology for further evaluation and treatment of your large pelvic mass. You need to return to the emergency department for worsening or uncontrollable pelvic pain, severe vaginal bleeding, fevers greater than 100.4, severe flank pain, painful urination, generally feeling worse or unwell, or any other concerns you may have. Case management should be reaching out to you shortly to help set you up with your follow-up appointment. 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
--- NOTE | 2023-01-30 08:14 | US_ITS ---
WS: [id number] US transvaginal [id number] HISTORY: L pelvic mass/pain/cramping COMPARISON: CT 10/17/2022, 05/05/2022. Prior pelvic ultrasound 05/05/2022. Uterus: 9.7 cm x 6.1 cm x 3.9 cm. Normal size anteverted uterus. No fibroid or mass. Endometrium: 1.1 cm. Normal. Right ovary: 4.1 cm x 2.5 cm x 4.1 cm. Normal size and vascularity, no cystic or solid masses. Left ovary: 3.0 cm x 2.3 cm x 3.4 cm. Normal size and vascularity, no cystic or solid masses. No free fluid in the cul-de-sac. There is a large cystic mass with thin septations superior to the uterus with no increased vascularit y. Mass extends over a length of 11 cm, transversely by 11 cm in anterior posterior by 9 cm. This mas s has minimally increased in size since 05/05/2022. On prior CT examinations this mass extends across the midline and abuts both ovaries. The exact etiology of this cystic mass is not certain. IMPRESSION: 1. Large cystic mass with septations centered above the uterus extends across the midline. This is pr obably ovarian in etiology. Mass contacts both ovaries. The exact etiology is is not apparent. Due to this large size and the septations PHOTOGRAMMETRIC ENGINEER evaluation and possible surgical removal is recommended. Cyst ic neoplasm should be considered. This may be benign or malignant. Favor benign as there is no ascite s and only minimal increase in size since 05/05/2022. 2. Normal uterus.
[2023-01-30 08:53] LABS: HCG Qualitative Urine. Negative (Negative)
[2023-01-30 09:32] VITALS: BP 152/102; PULSE 48; RESP 24; O2SAT 98
[2023-01-30] MEDS: morphine 4 mg/mL SDV 1 mL IM (09:32)
--- NOTE | 2023-01-30 12:27 | DCPLANNER ---
manager relocation had message to schedule a follow up appointment for patient with ERECTOR OPERATOR. manager relocation sent patients information to the front [facility] staff [facility]. Patients information will be printed and reviewed. Clinic will call patient with appointment information.
== END 2023-01-30 10:10 | disposition home or self-care (01) ==
PROVIDERS: Emergency Provider Physician Assistant
DX: R19.00 Intra-abdominal and pelvic swelling, mass and lump, unspecified site (principal)
CPT/HCPCS: 76830; 81025; 96372; 99284; J2270

== ENCOUNTER → 2023-02-11 15:05 | Outpatient (BNVA) | payer BC, SELFPAY | PROVIDERS: Referring Provider Physician Assistant; Visit Provider Obstetrics & Gynecology | DX: Z12.4 Encounter for screening for malignant neoplasm of cervix (principal) | CPT/HCPCS: 87624 ==

== ENCOUNTER 2023-02-19 02:34 | Emergency (ER) | payer BC, SELFPAY ==
[2023-02-19 02:40] VITALS: BP 132/104; PULSE 86; RESP 18; TEMP 36.7; O2SAT 99; BMI 46.0
--- NOTE | 2023-02-19 02:42 | ED_ITS ---
HPI - Abdominal Pain General: Chief Complaint: Abdominal Pain Stated Complaint: left abdomin pain, Time Seen by Provider: 02/19/23 02:41 Source: patient Mode of arrival: ambulatory Limitations: no limitations History of Present Illness: 27-year-old female states been having left lower abdominal pain throughout the night. States pain sharp in nature rates an 8 out of 10 she has been diagnosed with a pelvic mass on the left in the past states that is caused pain like this in the past. She is following with Dr. Childress [facility] for the mass. She denies any fever denies any vaginal discharge Associated Symptoms: Denies chills, diarrhea, fever(s), nausea and vomiting Related Data: Date of Last Menstrual Period: 01/28/23 Review of Systems Const: Denies: fever(s), chills, body aches or change in appetite ENMT: Denies: throat pain or dental pain Card: Denies: chest pain Resp: Denies: dyspnea GI: Reports: abdominal pain; Denies: nausea, vomiting or diarrhea Musc: Denies: neck pain or back pain Skin/Breast: Denies: rash Neuro: Denies: headache(s) PFSH ED PFSH: Medical History No pertinent family history Surgical History No pertinent past surgical history Family History Father Diabetes Family history of thyroid problem Heart disease Grandmother Diabetes paternal Stroke maternal Grandfather Diabetes paternal Denies family history of Colon cancer Ovarian cancer Breast cancer Hypertension Uterine cancer Hyperchloremia Female Reproductive History: Date of last menstrual period: 01/28/23 Physical Exam Const: COMMON NORMALS: no acute distress, patient oriented x3 and healthy appearing HENMT: COMMON NORMALS: normocephalic and atraumatic HEAD & SCALP: normocephalic and atraumatic Neck/C-Spine: COMMON NORMALS: full ROM and supple Chest: COMMONS NORMALS: normal inspection of the chest and normal palpation of entire chest wall Resp: COMMON NORMALS: normal respiratory effort, No retractions, No use of accessory muscles and clear to auscultation bilaterally AUSCULTATION: clear to auscultation bilaterally Cardio: COMMON NORMALS: regular rate, regular rhythm and No murmurs present (Cardio) RATE: regular rate RHYTHM: regular rhythm GI: COMMON NORMALS: Normal to inspection, nondistended, normoactive bowel sounds present, Soft to palpation, non-tender and no masses PALPATION: Yes Soft to palpation Extremity: COMMON NORMALS: normal to inspection and full ROM Neuro: COMMON NORMALS: patient oriented x3, moves all extremities and no focal motor deficits Psych: COMMON NORMALS: mental status grossly normal, Normal thought process present and cooperative THOUGHT PROCESS: Normal thought process present Skin: COMMON NORMALS: no rashes or lesions noted and no wounds GENERAL SKIN EXAM: no rashes or lesions noted Course Vital Signs: Vital signs: Vital Signs Temperature 98.0 F 02/19/23 02:40 Pulse Rate 77 02/19/23 03:17 Respiratory Rate 16 02/19/23 03:17 Blood Pressure 154/80 02/19/23 03:17 Pulse Oximetry 100 02/19/23 03:17 Oxygen Delivery Me thod Room Air 02/19/23 02:40 MDM - Abdominal Pain Medical Decision Making Patient presents here with abdominal pain likely from her ovarian mass she has no signs of torsion her pain is much improved she is stable for discharge she is to follow-up with her [facility] return if worsening. Medical Records I reviewed the patient's medical records. Lab Data I reviewed the patient's lab results. 02/19/23 03:13 02/19/23 03:13 Labs/Radiology: Laboratory Results WBC 7.02 10^3/uL (3.29-11.43) 02/19/23 03:13 RBC 5.50 10^6/uL (3.85-5.65) 02/19/23 03:13 Hgb 13.10 g/dL (11.27-16.99) 02/19/23 03:13 Hct 41.7 % (36-47) 02/19/23 03:13 MCV 75.8 fl (85-98) L 02/19/23 03:13 MCH 23.8 pg (27-33) L 02/19/23 03:13 MCHC 31.4 g/dL (30-55) 02/19/23 03:13 RDW 16.4 % (12.1-15.1) H 02/19/23 03:13 Plt Count 260 10^3/cmm (157-399) 02/19/23 03:13 MPV 10.2 fL (7.4-10.4) 02/19/23 03:13 Neut % (Auto) 48.4 % 02/19/23 03:13 Lymph % (Auto) 44.4 % 02/19/23 03:13 [place] % (Auto) 4.8 % 02/19/23 03:13 Eos % (Auto) 1.7 % 02/19/23 03:13 Baso % (Auto) 0.6 % 02/19/23 03:13 Neut # (Auto) 3.39 10^3/uL (1.8-7.7) 02/19/23 03:13 Lymph # (Auto) 3.1 10^3/uL (0.8-4.8) 02/19/23 03:13 [place] # (Auto) 0.3 10^3/uL (0.2-0.9) 02/19/23 03:13 Eos # (Auto) 0.1 10^3/uL (0.0-0.8) 02/19/23 03:13 Baso # (Auto) 0.0 10^3/uL (0.0-0.1) 02/19/23 03:13 Nucleated RBC % (auto) 0 % 02/19/23 03:13 Nucleated RBCs # 0.0 /100WBC 02/19/23 03:13 Sodium 139 mmol/L (136-145) 02/19/23 03:13 Potassium 3.7 mmol/L (3.5-5.1) 02/19/23 03:13 Chloride 103 mmol/L (98-107) 02/19/23 03:13 Carbon Dioxide 25 mmol/L (22-29) 02/19/23 03:13 Anion Gap 14.7 (5-19) 02/19/23 03:13 BUN 7 mg/dL (6-20) 02/19/23 03:13 Creatinine 0.6 mg/dL (0.5-0.9) 02/19/23 03:13 GFR Calculation 118.2 mL/min (90-130) 02/19/23 03:13 Glucose 101 mg/dL (65-115) 02/19/23 03:13 Calculated Osmolality 286 mOsm/kg (285-295) 02/19/23 03:13 Calcium 9.6 mg/dL (8.5-10.5) 02/19/23 03:13 Total Bilirubin 0.2 mg/dL (0.15-1.2) 02/19/23 03:13 AST 13 U/L (0-32) 02/19/23 03:13 ALT 8 U/L (0-33) 02/19/23 03:13 Alkaline Phosphatase 57 U/L (35-105) 02/19/23 03:13 Total Protein 8.1 g/dL (6.6-8.7) 02/19/23 03:13 Albumin 4.4 g/dL (3.5-5.2) 02/19/23 03:13 Globulin 3.7 g/dL (1.3-4.6) 02/19/23 03:13 Lipase 38 U/L (13-60) 02/19/23 03:13 HCG, Qual Negative (Negative) 02/19/23 03:13 Urine Color Light yellow (Yellow) 02/19/23 03:15 Urine Appearance Sl hazy (CLEAR) A 02/19/23 03:15 Urine pH 7 (5-7) 02/19/23 03:15 Ur Specific [place] 1.010 (1.005-1.030) 02/19/23 03:15 Urine Protein Neg (Negative) 02/19/23 03:15 Urine Glucose (UA) Norm (Normal) 02/19/23 03:15 Urine Ketones Negative (Negative) 02/19/23 03:15 Urine Blood Neg (Negative) 02/19/23 03:15 Urine Nitrate Negative (Negative) 02/19/23 03:15 Urine Bilirubin Neg (Negative) 02/19/23 03:15 Urine Urobilinogen Neg mg/dL (Negative) 02/19/23 03:15 Ur Leukocyte Esterase Negative (Negative) 02/19/23 03:15 Urine RBC None /hpf (0-2) 02/19/23 03:15 Urine WBC None /hpf (0-5) 02/19/23 03:15 Ur Squamous Epith Cells 5-10 /hpf (0-5) H 02/19/23 03:15 Amorphous Sediment 2+ /hpf 02/19/23 03:15 Urine Bacteria 1+ /hpf (NONE) H 02/19/23 03:15 All radiology interpretation(s) finalized by discharge Discharge Plan Discharge Patient Disposition: Home Clinical Impression: Abdominal pain, Adnexal mass Condition: Stable Prescriptions: New hydrocodone-acetaminophen 5-325 mg tablet 1 tab PO Q6H PRN (Reason: pain) Qty: 14 0RF ondansetron 4 mg tablet,disintegrating 4 mg PO Q6H PRN (Reason: nausea and vomiting) Qty: 14 0RF No Action ibuprofen 800 mg tablet 800 mg PO Q8H PRN (Reason: pain) Qty: 20 0RF Midol 500-25 mg Tablet 2 tab PO Q6H PRN (Reason: Menstrual Cramps) Discharge Orders: Discharge ED (Routine); Ordered 02/19/23 Ordered By: Jacki Luo Referrals: Prasad Childress MD [Physician] - 1-3 days Discharge Diet: Advance as tolerated Discharge Activity: Resume usual activity Patient Instructions: Abdominal Pain (ED), Opioid Safety Stand Alone Forms: Work/School Release Coding Level of Care Code ED Rn Clinician for 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
[2023-02-19 03:17] VITALS: BP 154/80; PULSE 77; RESP 16; O2SAT 100
[2023-02-19] MEDS: HYDROmorphone 1 mg/mL INJ 1 mL IVP (03:17)
[2023-02-19] MEDS: ondansetron 2 mg/ML SDV 2 mL 4 MG IVP (03:17)
[2023-02-19 03:18] LABS: Basophils % 0.6 %; Eosinophils # 0.1 10^3/uL (0.0-0.8); Eosinophils % 1.7 %; Hematocrit 41.7 % (36-47); Lymphocytes # 3.1 10^3/uL (0.8-4.8); Lymphocytes % 44.4 %; Mean Corpuscular HGB Conc 31.4 g/dL (30-55); Mean Corpuscular Hemoglobin 23.8 pg (27-33); Mean Corpuscular Volume 75.8 fl (85-98); Mean Platelet Volume 10.2 fL (7.4-10.4); Monocytes # 0.3 10^3/uL (0.2-0.9); Monocytes % 4.8 %; Neutrophils # 3.39 10^3/uL (1.8-7.7); Neutrophils % 48.4 %; Nucleated Red Blood Cells % 0 %; Platelet Count 260 10^3/cmm (157-399); Red Cell Distribution Width 16.4 % (12.1-15.1); White Blood Count 7.02 10^3/uL (3.29-11.43)
[2023-02-19 03:29] LABS: Add Urine Microscopic? YES; Bilirubin Urine Neg (Negative); Blood Urine Neg (Negative); Glucose Urine UA Norm (Normal); Ketones Urine Negative (Negative); Leukocyte Esterase Urine Negative (Negative); Nitrate Urine Negative (Negative); Protein Urine Neg (Negative); Urine Appearance SL Hazy (CLEAR); Urine Color Light yellow (Yellow); Urobilinogen Urine Neg (Negative); pH Urine 7 (5-7)
[2023-02-19 03:30] LABS: Add Urine Culture? No; Amorphous Sediment Urine 2+ /hpf; Bacteria Urine 1+ /hpf
[2023-02-19 03:36] LABS: Alanine Aminotransferase 8 U/L (0-33); Albumin Level 4.4 g/dL (3.5-5.2); Alkaline Phosphatase 57 U/L (35-105); Anion Gap 14.7 (5-19); Aspartate Amino Transferase 13 U/L (0-32); Blood Urea Nitrogen 7 mg/dL (6-20); Calcium 9.6 mg/dL (8.5-10.5); Carbon Dioxide 25 mmol/L (22-29); Chloride 103 mmol/L (98-107); Globulin 3.7 g/dL (1.3-4.6); Glomerular Filtration Rate 118.2 mL/min (90-130); Glucose 101 mg/dL (65-115); Lipase 38 U/L (13-60); Osmolality Calculated 286 mOsm/kg (285-295); Potassium 3.7 mmol/L (3.5-5.1); Sodium 139 mmol/L (136-145); Total Bilirubin 0.2 mg/dL (0.15-1.2); Total Protein 8.1 g/dL (6.6-8.7)
[2023-02-19 03:38] LABS: HCG, Serum Qual Negative (Negative)
[2023-02-19 03:57] VITALS: BP 154/80; PULSE 77; RESP 16; TEMP 36.7; O2SAT 100
== END 2023-02-19 03:58 | disposition home or self-care (01) ==
PROVIDERS: Emergency Provider Emergency Medicine
DX: R10.32 Left lower quadrant pain (principal); N83.8 Other noninflammatory disorders of ovary, fallopian tube and broad ligament
CPT/HCPCS: 80053; 81001; 83690; 84703; 85025; 96374; 96375; 99284; J1170; J2405

== ENCOUNTER 2023-03-04 20:43 | Emergency (ER) | payer BC, SELFPAY ==
[2023-03-04 21:02] VITALS: BP 120/78; PULSE 53; RESP 22; TEMP 36.4; O2SAT 100; BMI 46.0
[2023-03-04 21:14] LABS: Basophils % 0.5 %; Eosinophils % 0.3 %; Hematocrit 43.1 % (36-47); Lymphocytes # 1.3 10^3/uL (0.8-4.8); Lymphocytes % 17.6 %; Mean Corpuscular HGB Conc 29.5 g/dL (30-55); Mean Corpuscular Hemoglobin 23.6 pg (27-33); Mean Corpuscular Volume 80.1 fl (85-98); Mean Platelet Volume 11.1 fL (7.4-10.4); Monocytes # 0.3 10^3/uL (0.2-0.9); Monocytes % 3.9 %; Neutrophils # 5.78 10^3/uL (1.8-7.7); Neutrophils % 77.4 %; Nucleated Red Blood Cells % 0 %; Platelet Count 255 10^3/cmm (157-399); Red Blood Count 5.38 10^6/uL (3.85-5.65); Red Cell Distribution Width 16.4 % (12.1-15.1); White Blood Count 7.46 10^3/uL (3.29-11.43)
[2023-03-04 21:31] LABS: HCG, Serum Qual Negative (Negative)
[2023-03-04 21:34] LABS: Alanine Aminotransferase 11 U/L (0-33); Albumin Level 4.4 g/dL (3.5-5.2); Alkaline Phosphatase 57 U/L (35-105); Aspartate Amino Transferase 15 U/L (0-32); Blood Urea Nitrogen 8 mg/dL (6-20); Calcium 9.3 mg/dL (8.5-10.5); Carbon Dioxide 23 mmol/L (22-29); Chloride 102 mmol/L (98-107); Globulin 3.6 g/dL (1.3-4.6); Glomerular Filtration Rate 145.9 mL/min (90-130); Glucose 117 mg/dL (65-115); Lipase 25 U/L (13-60); Osmolality Calculated 283 mOsm/kg (285-295); Sodium 137 mmol/L (136-145); Total Bilirubin 0.2 mg/dL (0.15-1.2)
[2023-03-04 21:41] LABS: Anion Gap 15.7 (5-19); Potassium 3.7 mmol/L (3.5-5.1)
--- NOTE | 2023-03-04 22:26 | ED_ITS ---
HPI - Abdominal Pain General: Chief Complaint: Abdominal Pain Stated Complaint: abdomin pain Time Seen by Provider: 03/04/23 21:59 Source: patient Mode of arrival: ambulatory Limitations: no limitations History of Present Illness: 27-year-old female has had history of a pelvic mass that is caused her chronic pain. States she supposed to have the mass removed but has not had it scheduled yet. States she been having severe pain throughout the day been consistent with her pain in the past. She rates pain a 9 out of 10 denies any vomiting or diarrhea. Associated Symptoms: Denies chills, diarrhea, dysuria, fever(s), nausea and vomiting Review of Systems Const: Denies: fever(s), chills, body aches or change in appetite Eyes: Denies: blurry vision or eye discomfort ENMT: Denies: throat pain or dental pain Card: Denies: chest pain Resp: Denies: dyspnea GI: Reports: abdominal pain; Denies: nausea, vomiting or diarrhea : Denies: dysuria Musc: Denies: neck pain or back pain Skin/Breast: Denies: rash Neuro: Denies: headache(s) PFSH ED PFSH: Medical History No pertinent family history Surgical History No pertinent past surgical history Family History Father Diabetes Family history of thyroid problem Heart disease Grandmother Diabetes paternal Stroke maternal Grandfather Diabetes paternal Denies family history of Colon cancer Ovarian cancer Breast cancer Hypertension Uterine cancer Hyperchloremia Physical Exam Const: COMMON NORMALS: no acute distress, patient oriented x3 and healthy appearing HENMT: COMMON NORMALS: normocephalic and atraumatic HEAD & SCALP: normocephalic and atraumatic Neck/C-Spine: COMMON NORMALS: full ROM and supple Chest: COMMONS NORMALS: normal inspection of the chest and normal palpation of entire chest wall Resp: COMMON NORMALS: normal respiratory effort, No retractions, No use of a ccessory muscles and clear to auscultation bilaterally AUSCULTATION: clear to auscultation bilaterally Cardio: COMMON NORMALS: regular rate, regular rhythm and No murmurs present (Cardio) RATE: regular rate RHYTHM: regular rhythm GI: COMMON NORMALS: Normal to inspection, nondistended, normoactive bowel sounds present, Soft to palpation, non-tender and no masses PALPATION: Yes Soft to palpation Extremity: COMMON NORMALS: normal to inspection and full ROM Neuro: COMMON NORMALS: patient oriented x3, moves all extremities and no focal motor deficits Psych: COMMON NORMALS: mental status grossly normal, Normal thought process present and cooperative THOUGHT PROCESS: Normal thought process present Skin: COMMON NORMALS: no rashes or lesions noted and no wounds GENERAL SKIN EXAM: no rashes or lesions noted Course Vital Signs: Vital signs: Vital Signs Temperature 97.5 F L 03/04/23 21:02 Pulse Rate 63 03/04/23 22:33 Respiratory Rate 18 03/04/23 22:33 Blood Pressure 139/72 03/04/23 22:33 Pulse Oximetry 96 03/04/23 22:33 Oxygen Delivery Me thod Room Air 03/04/23 22:33 MDM - Abdominal Pain Medical Decision Making Patient presents for abdominal pain likely from her adnexal mass her pain is much improved here blood works normal she has no signs of ovarian torsion she is to follow-up with her OB to have the mass removed we will prescribe her pain meds. She is return if worsening Medical Records I reviewed the patient's medical records. Lab Data I reviewed the patient's lab results. 03/04/23 21:09 03/04/23 21:09 Labs/Radiology: Laboratory Results WBC 7.46 10^3/uL (3.29-11.43) 03/04/23 21:09 RBC 5.38 10^6/uL (3.85-5.65) 03/04/23 21:09 Hgb 12.70 g/dL (11.27-16.99) 03/04/23 21:09 Hct 43.1 % (36-47) 03/04/23 21:09 MCV 80.1 fl (85-98) L 03/04/23 21:09 MCH 23.6 pg (27-33) L 03/04/23 21:09 MCHC 29.5 g/dL (30-55) L 03/04/23 21:09 RDW 16.4 % (12.1-15.1) H 03/04/23 21:09 Plt Count 255 10^3/cmm (157-399) 03/04/23 21:09 MPV 11.1 fL (7.4-10.4) H 03/04/23 21:09 Neut % (Auto) 77.4 % 03/04/23 21:09 Lymph % (Auto) 17.6 % 03/04/23 21:09 [place] % (Auto) 3.9 % 03/04/23 21:09 Eos % (Auto) 0.3 % 03/04/23 21:09 Baso % (Auto) 0.5 % 03/04/23 21:09 Neut # (Auto) 5.78 10^3/uL (1.8-7.7) 03/04/23 21:09 Lymph # (Auto) 1.3 10^3/uL (0.8-4.8) 03/04/23 21:09 [place] # (Auto) 0.3 10^3/uL (0.2-0.9) 03/04/23 21:09 Eos # (Auto) 0.0 10^3/uL (0.0-0.8) 03/04/23 21:09 Baso # (Auto) 0.0 10^3/uL (0.0-0.1) 03/04/23 21:09 Nucleated RBC % (auto) 0 % 03/04/23 21:09 Nucleated RBCs # 0.0 /100WBC 03/04/23 21:09 Sodium 137 mmol/L (136-145) 03/04/23 21:09 Potassium 3.7 mmol/L (3.5-5.1) 03/04/23 21:09 Chloride 102 mmol/L (98-107) 03/04/23 21:09 Carbon Dioxide 23 mmol/L (22-29) 03/04/23 21:09 Anion Gap 15.7 (5-19) 03/04/23 21:09 BUN 8 mg/dL (6-20) 03/04/23 21:09 Creatinine 0.5 mg/dL (0.5-0.9) 03/04/23 21:09 GFR Calculation 145.9 mL/min (90-130) H 03/04/23 21:09 Glucose 117 mg/dL (65-115) H 03/04/23 21:09 Calculated Osmolality 283 mOsm/kg (285-295) L 03/04/23 21:09 Calcium 9.3 mg/dL (8.5-10.5) 03/04/23 21:09 Total Bilirubin 0.2 mg/dL (0.15-1.2) 03/04/23 21:09 AST 15 U/L (0-32) 03/04/23 21:09 ALT 11 U/L (0-33) 03/04/23 21:09 Alkaline Phosphatase 57 U/L (35-105) 03/04/23 21:09 Total Protein 8.0 g/dL (6.6-8.7) 03/04/23 21:09 Albumin 4.4 g/dL (3.5-5.2) 03/04/23 21:09 Globulin 3.6 g/dL (1.3-4.6) 03/04/23 21:09 Lipase 25 U/L (13-60) 03/04/23 21:09 HCG, Qual Negative (Negative) 03/04/23 21:09 Urine Color Yellow (Yellow) 03/04/23 22:13 Urine Appearance Sl hazy (CLEAR) A 03/04/23 22:13 Urine pH 5 (5-7) 03/04/23 22:13 Ur Specific [place] 1.030 (1.005-1.030) 03/04/23 22:13 Urine Protein Trace (Negative) 03/04/23 22:13 Urine Glucose (UA) Norm (Normal) 03/04/23 22:13 Urine Ketones 1+ (Negative) H 03/04/23 22:13 Urine Blood 2+ (Negative) H 03/04/23 22:13 Urine Nitrate Negative (Negative) 03/04/23 22:13 Urine Bilirubin Neg (Negative) 03/04/23 22:13 Urine Urobilinogen Neg mg/dL (Negative) 03/04/23 22:13 Ur Leukocyte Esterase Negative (Negative) 03/04/23 22:13 Urine RBC 0-4 /hpf (0-2) H 03/04/23 22:13 Urine WBC None /hpf (0-5) 03/04/23 22:13 Ur Squamous Epith Cells 5-10 /hpf (0-5) H 03/04/23 22:13 Ur Transition Epith Cell 0-4 /hpf 03/04/23 22:13 Amorphous Sediment Not Reportable 03/04/23 22:13 Urine Bacteria 1+ /hpf (NONE) H 03/04/23 22:13 Urine Mucus 2+ /hpf 03/04/23 22:13 No radiology studies performed this visit Discharge Plan Discharge Patient Disposition: Home Clinical Impression: Adnexal mass, Abdominal pain Condition: Stable Prescriptions: Continued hydrocodone-acetaminophen 5-325 mg tablet 1 tab PO Q6H PRN (Reason: pain) Qty: 14 0RF No Action ibuprofen 800 mg tablet 800 mg PO Q8H PRN (Reason: pain) Qty: 20 0RF ondansetron 4 mg tablet,disintegrating 4 mg PO Q6H PRN (Reason: nausea and vomiting) Qty: 14 0RF Midol 500-25 mg Tablet 2 tab PO Q6H PRN (Reason: Menstrual Cramps) Discharge Orders: Discharge ED (Routine); Ordered 03/04/23 Ordered By: Jacki Luo Referrals: Idalia Stearns LPN [Primary Care Provider] - 1-3 days Discharge Diet: Advance as tolerated Discharge Activity: Resume usual activity Patient Instructions: Abdominal Pain (ED), Opioid Safety Coding Level of Care Code ED Bioprocessing Manufacturing Technician for 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
[2023-03-04] MEDS: ondansetron 2 mg/ML SDV 2 mL 4 MG IVP (22:30)
[2023-03-04 22:32] VITALS: RESP 18; O2SAT 96
[2023-03-04] MEDS: HYDROmorphone 1 mg/mL INJ 1 mL IVP (22:32)
[2023-03-04 22:33] VITALS: BP 139/72; PULSE 63; RESP 18; O2SAT 96
[2023-03-04 22:37] LABS: Add Urine Microscopic? YES; Bilirubin Urine Neg (Negative); Blood Urine 2+ (Negative); Glucose Urine UA Norm (Normal); Ketones Urine 1+ (Negative); Leukocyte Esterase Urine Negative (Negative); Nitrate Urine Negative (Negative); Protein Urine Trace (Negative); Urine Appearance SL Hazy (CLEAR); Urine Color Yellow (Yellow); Urobilinogen Urine Neg (Negative); pH Urine 5 (5-7)
[2023-03-04 22:38] LABS: Add Urine Culture? No; Bacteria Urine 1+ /hpf; Mucus Urine 2+ /hpf; RBC Urine 0-4 /hpf (0-2); Transitional Epi Cells Urine 0-4 /hpf
--- NOTE | 2023-03-04 22:57 | PC.NURSE ---
Pt sent home with 2x [place] 5/325 per MD order.
== END 2023-03-04 22:56 | disposition home or self-care (01) ==
PROVIDERS: Emergency Provider Emergency Medicine
DX: N85.9 Noninflammatory disorder of uterus, unspecified (principal); R10.2 Pelvic and perineal pain
CPT/HCPCS: 36415; 80053; 81001; 83690; 84703; 85025; 96374; 96375; 99284; J1170; J2405

== ENCOUNTER 2023-03-23 11:10 | Emergency (ER) | payer BC, SELFPAY ==
[2023-03-23 11:33] VITALS: BP 129/88; PULSE 57; RESP 20; TEMP 36.6; O2SAT 98
[2023-03-23 11:42] LABS: Basophils % 0.3 %; Eosinophils % 0.4 %; Hematocrit 41.2 % (36-47); Lymphocytes # 1.9 10^3/uL (0.8-4.8); Lymphocytes % 26.5 %; Mean Corpuscular HGB Conc 30.6 g/dL (30-55); Mean Corpuscular Hemoglobin 23.9 pg (27-33); Mean Corpuscular Volume 78.2 fl (85-98); Mean Platelet Volume 10.8 fL (7.4-10.4); Monocytes # 0.3 10^3/uL (0.2-0.9); Monocytes % 4.3 %; Neutrophils # 4.79 10^3/uL (1.8-7.7); Neutrophils % 68.2 %; Nucleated Red Blood Cells % 0 %; Platelet Count 203 10^3/cmm (157-399); Red Blood Count 5.27 10^6/uL (3.85-5.65); Red Cell Distribution Width 16.5 % (12.1-15.1); White Blood Count 7.02 10^3/uL (3.29-11.43)
[2023-03-23 12:07] LABS: Alanine Aminotransferase < 5 U/L (0-33); Albumin Level 4.2 g/dL (3.5-5.2); Alkaline Phosphatase 60 U/L (35-105); Anion Gap 14.8 (5-19); Aspartate Amino Transferase 14 U/L (0-32); Blood Urea Nitrogen 5 mg/dL (6-20); Calcium 9.7 mg/dL (8.5-10.5); Carbon Dioxide 24 mmol/L (22-29); Chloride 103 mmol/L (98-107); Globulin 3.5 g/dL (1.3-4.6); Glomerular Filtration Rate 118.2 mL/min (90-130); Glucose 117 mg/dL (65-115); Lipase 25 U/L (13-60); Osmolality Calculated 284 mOsm/kg (285-295); Potassium 3.8 mmol/L (3.5-5.1); Sodium 138 mmol/L (136-145); Total Bilirubin 0.2 mg/dL (0.15-1.2); Total Protein 7.7 g/dL (6.6-8.7)
[2023-03-23 12:17] LABS: HCG, Serum Qual Negative (Negative)
[2023-03-23] MEDS: ketorolac 30 mg/mL INJ IM (13:38)
[2023-03-23] MEDS: ondansetron 2 mg/ML SDV 2 mL 4 MG IM (13:40)
--- NOTE | 2023-03-23 13:40 | ED_ITS ---
HPI - Abdominal Pain General: Chief Complaint: Abdominal Pain Stated Complaint: pain on abdomin Time Seen by Provider: 03/23/23 11:18 History of Present Illness: Patient comes to the ER with complaints of abdominal pain. Patient has a known ovarian cyst that is causing this pain. Patient is been worked up for multiple times and even has an appointment with Dr. Childress on Friday and scheduled for surgery on . Patient has tried [id number] ibuprofen Tylenol avid smoke marijuana but she says none of this controls her pain. Patient came in for pain control otherwise the same symptoms as before when her cyst flared up. No other symptoms or complaints at this time. Review of Systems General: Reports: 10 or more systems reviewed and unremarkable except in HPI and below PFSH ED PFSH: Medical History No pertinent family history Surgical History No pertinent past surgical history Family History Father Diabetes Family history of thyroid problem Heart disease Grandmother Diabetes paternal Stroke maternal Grandfather Diabetes paternal Denies family history of Colon cancer Ovarian cancer Breast cancer Hypertension Uterine cancer Hyperchloremia Physical Exam Const: COMMON NORMALS: no acute distress, average body habitus, patient tremaine ented x3, no limitations, healthy appearing, alert and well nourished HENMT: COMMON NORMALS: normocephalic, atraumatic, hearing grossly normal audrey aterally, external ears normal, Normal external nose present, moist oral mucous membranes and oropharynx normal HEAD & SCALP: normocephalic and atraumatic NOSE: Normal external nose present EXTERNAL EAR: Yes external ears normal Neck/C-Spine: COMMON NORMALS: full ROM, no lymphadenopathy, supple, no meningeal signs, no JVD and Thyroid normal THYROID: Thyroid normal Lymph: LYMPHATIC: no lymphadenopathy noted Chest: COMMONS NORMALS: normal inspection of the chest and normal palpation of entire chest wall Resp: COMMON NORMALS: normal respiratory effort, No retractions, No use of accessory muscles and clear to auscultation bilaterally AUSCULTATION: clear to auscultation bilaterally Cardio: COMMON NORMALS: no JVD, regular rate, regular rhythm, S1 normal heart sound present, S2 normal heart sound present, No gallops present (Cardio), No clicks present (Cardio), No murmurs present (Cardio) and No rub (Cardio) RATE: regular rate RHYTHM: regular rhythm HEART SOUNDS: S1 normal heart sound present and S2 normal heart sound present GI: COMMON NORMALS: Normal to inspection, nondistended, normoactive bowel sounds present, Soft to palpation, No hepatosplenomegaly present and no masses; negative for non-tender (Tender to palpate diffusely worse in the lower abdominal pelvic region) PALPATION: Yes Soft to palpation and Yes No he patosplenomegaly present : COMMON NORMALS: Yes no CVA tenderness BLADDER/KIDNEY EXAM: Yes no CVA tenderness Back/Pelvis: COMMON NORMALS: no CVA tenderness Neuro: COMMON NORMALS: patient oriented x3 SENSORIUM/ORIENTATION: Yes alert MENINGEAL SIGNS: Yes no meningeal signs Course Vital Signs: Vital signs: Vital Signs Temperature 97.8 F 03/23/23 11:33 Pulse Rate 57 L 03/23/23 11:33 Respiratory Rate 20 H 03/23/23 11:33 Blood Pressure 129/88 03/23/23 11:33 Pulse Oximetry 98 03/23/23 11:33 Oxygen Delivery Me thod Room Air 03/23/23 11:33 MDM - Abdominal Pain Medical Decision Making Patient presents to the ER with lower abdominal pain. Patient has a diagnosis of ovarian cyst and has appointment with the [facility] later on this week. Patient had lab work which was essentially unremarkable. Patient be discharged home with [place] for pain medicine. Patient is to keep her appointment with [facility] for definitive treatment. Differential Diagnosis Likely abdominal pain; Unlikely acute appendicitis, calculus of kidney, constipation, diverticulitis, endometriosis, gastroenteritis, pancreatitis or small bowel obstruction Medical Records I reviewed the patient's medical records. Lab Data I reviewed the patient's lab results. 03/23/23 11:35 03/23/23 11:35 Labs/Radiology: Laboratory Results WBC 7.02 10^3/uL (3.29-11.43) 03/23/23 11:35 RBC 5.27 10^6/uL (3.85-5.65) 03/23/23 11:35 Hgb 12.60 g/dL (11.27-16.99) 03/23/23 11:35 Hct 41.2 % (36-47) 03/23/23 11:35 MCV 78.2 fl (85-98) L 03/23/23 11:35 MCH 23.9 pg (27-33) L 03/23/23 11:35 MCHC 30.6 g/dL (30-55) 03/23/23 11:35 RDW 16.5 % (12.1-15.1) H 03/23/23 11:35 Plt Count 203 10^3/cmm (157-399) 03/23/23 11:35 MPV 10.8 fL (7.4-10.4) H 03/23/23 11:35 Neut % (Auto) 68.2 % 03/23/23 11:35 Lymph % (Auto) 26.5 % 03/23/23 11:35 [place] % (Auto) 4.3 % 03/23/23 11:35 Eos % (Auto) 0.4 % 03/23/23 11:35 Baso % (Auto) 0.3 % 03/23/23 11:35 Neut # (Auto) 4.79 10^3/uL (1.8-7.7) 03/23/23 11:35 Lymph # (Auto) 1.9 10^3/uL (0.8-4.8) 03/23/23 11:35 [place] # (Auto) 0.3 10^3/uL (0.2-0.9) 03/23/23 11:35 Eos # (Auto) 0.0 10^3/uL (0.0-0.8) 03/23/23 11:35 Baso # (Auto) 0.0 10^3/uL (0.0-0.1) 03/23/23 11:35 Nucleated RBC % (auto) 0 % 03/23/23 11:35 Nucleated RBCs # 0.0 /100WBC 03/23/23 11:35 Sodium 138 mmol/L (136-145) 03/23/23 11:35 Potassium 3.8 mmol/L (3.5-5.1) 03/23/23 11:35 Chloride 103 mmol/L (98-107) 03/23/23 11:35 Carbon Dioxide 24 mmol/L (22-29) 03/23/23 11:35 Anion Gap 14.8 (5-19) 03/23/23 11:35 BUN 5 mg/dL (6-20) L 03/23/23 11:35 Creatinine 0.6 mg/dL (0.5-0.9) 03/23/23 11:35 GFR Calculation 118.2 mL/min (90-130) 03/23/23 11:35 Glucose 117 mg/dL (65-115) H 03/23/23 11:35 Calculated Osmolality 284 mOsm/kg (285-295) L 03/23/23 11:35 Calcium 9.7 mg/dL (8.5-10.5) 03/23/23 11:35 Total Bilirubin 0.2 mg/dL (0.15-1.2) 03/23/23 11:35 AST 14 U/L (0-32) 03/23/23 11:35 ALT < 5 U/L (0-33) 03/23/23 11:35 Alkaline Phosphatase 60 U/L (35-105) 03/23/23 11:35 Total Protein 7.7 g/dL (6.6-8.7) 03/23/23 11:35 Albumin 4.2 g/dL (3.5-5.2) 03/23/23 11:35 Globulin 3.5 g/dL (1.3-4.6) 03/23/23 11:35 Lipase 25 U/L (13-60) 03/23/23 11:35 HCG, Qual Negative (Negative) 03/23/23 11:35 No radiology studies performed this visit Discharge Plan Discharge Patient Disposition: Home Clinical Impression: Adnexal mass Condition: Stable Prescriptions: New hydrocodone-acetaminophen 5-325 mg tablet 1 tab PO TID PRN (Reason: pain) Qty: 10 0RF No Action Midol 500-25 mg Tablet 2 tab PO Q6H PRN (Reason: Menstrual Cramps) ibuprofen 200 mg Tablet 600 mg PO Q6H PRN (Reason: Pain) Discharge Orders: Discharge ED (Routine); Ordered 03/23/23 Ordered By: Chris Fagan Referrals: Idalia Stearns LPN [Primary Care Provider] - 1 week Patient Instructions: Abdominal Pain - Adult Activity Restrictions/Additional Instructions: Please use the pain medicine as directed. Please follow-up with your [facility]URITY OR SURVEILLANCE MONITOR as previously scheduled next week for definitive treatment of your pelvic mass. Coding Level of Care Code ED Grain Operator for 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
[2023-03-23 14:41] VITALS: RESP 16
[2023-03-23] MEDS: morphine 4 mg/mL SDV 1 mL IM (14:41)
[2023-03-23 15:06] LABS: Add Urine Culture? No; Add Urine Microscopic? YES; Amorphous Sediment Urine 3+ /hpf; Bacteria Urine 1+ /hpf; Bilirubin Urine Neg (Negative); Blood Urine Neg (Negative); Glucose Urine UA Norm (Normal); Ketones Urine Negative (Negative); Leukocyte Esterase Urine Negative (Negative); Nitrate Urine Negative (Negative); Protein Urine Neg (Negative); Specific Gravity, Urine 1.015 (1.005-1.030); Squamous Epithelial Cell Urine 0-4 /hpf (0-5); Sulfosalicylic Acid Urine Negative (Negative); Urine Appearance Cloudy (CLEAR); Urine Color Dark Yellow (Yellow); Urobilinogen Urine Norm (Negative); pH Urine 8 (5-7)
== END 2023-03-23 14:54 | disposition home or self-care (01) ==
PROVIDERS: Emergency Provider Emergency Medicine
DX: N83.209 Unspecified ovarian cyst, unspecified side (principal)
CPT/HCPCS: 36415; 80053; 81001; 83690; 84703; 85025; 96372; 99284; J1885; J2270; J2405

== ENCOUNTER 2023-03-25 08:36 | Emergency (ER) | payer BC, SELFPAY ==
[2023-03-25 08:48] VITALS: BP 150/84; PULSE 49; RESP 18; TEMP 36.8; O2SAT 99; BMI 44.2
[2023-03-25 09:28] LABS: Basophils % 0.3 %; Eosinophils % 0.2 %; Lymphocytes # 1.8 10^3/uL (0.8-4.8); Lymphocytes % 19.4 %; Mean Corpuscular HGB Conc 30.8 g/dL (30-55); Mean Corpuscular Hemoglobin 23.9 pg (27-33); Mean Corpuscular Volume 77.7 fl (85-98); Mean Platelet Volume 10.6 fL (7.4-10.4); Monocytes # 0.5 10^3/uL (0.2-0.9); Monocytes % 5.3 %; Neutrophils # 6.91 10^3/uL (1.8-7.7); Neutrophils % 74.6 %; Nucleated Red Blood Cells % 0 %; Platelet Count 257 10^3/cmm (157-399); Red Blood Count 5.15 10^6/uL (3.85-5.65); Red Cell Distribution Width 16.2 % (12.1-15.1); White Blood Count 9.27 10^3/uL (3.29-11.43)
[2023-03-25 09:46] LABS: Alanine Aminotransferase 14 U/L (0-33); Albumin Level 4.3 g/dL (3.5-5.2); Alkaline Phosphatase 58 U/L (35-105); Anion Gap 14.8 (5-19); Aspartate Amino Transferase 12 U/L (0-32); Blood Urea Nitrogen 4 mg/dL (6-20); Calcium 9.4 mg/dL (8.5-10.5); Carbon Dioxide 26 mmol/L (22-29); Chloride 103 mmol/L (98-107); Globulin 3.3 g/dL (1.3-4.6); Glomerular Filtration Rate 118.2 mL/min (90-130); Glucose 111 mg/dL (65-115); Osmolality Calculated 288 mOsm/kg (285-295); Potassium 3.8 mmol/L (3.5-5.1); Sodium 140 mmol/L (136-145); Total Bilirubin 0.3 mg/dL (0.15-1.2); Total Protein 7.6 g/dL (6.6-8.7)
[2023-03-25 09:51] LABS: HCG, Serum Qual Negative (Negative)
--- NOTE | 2023-03-25 10:27 | W.ED.ABDPA2 ---
HPI - Abdominal Pain General: Chief Complaint: Abdominal Pain Stated Complaint: NV/Abd Pain Time Seen by Provider: 03/25/23 08:56 Source: patient Mode of arrival: ambulatory Limitations: no limitations History of Present Illness: Patient is a 27-year-old female presents to ED today with complaint of pelvic pain. She has a known large cystic mass measuring approximately 11 x 11 x 9. Patient states she was seen here in our emergency department 2 days ago and prescribed hydrocodone. She states this was initially helping with her discomfort but feels it is no longer effective. She is scheduled for surgical excision on with Dr. Childress. She has a preop clinic appointment later today. She states this morning she got nauseous secondary to the pain and/or hydrocodone pain medication and vomited. No fevers. MD elicited complaint: abdominal pain (pelvic pain) Pertinent past history: other (known pelvic mass) Onset (ago): month(s) Pain Consistency: constant Location: Pelvis Severity: severe Radiation: none Migration to: no migration Exacerbating factors: nothing Relieving factors: other (hydrocodone was working but no longer effective at current dose) Associated Symptoms: Reports nausea and vomiting (x 1 this morning); Denies change in bowel habits, chills, dysuria, fever(s), hematochezia and melena Treatments prior to arrival: prescription analgesics Related Data: Patient : No Review of Systems Const: Denies: fever(s), chills, body aches, fatigue or malaise Card: Denies: chest pain Resp: Denies: dyspnea GI: Reports: abdominal pain, nausea and vomiting (x 1 this morning); Denies: change in bowel habits, hematochezia or melena : Reports: pelvic pain; Denies: flank pain, difficulty voiding, dysuria, urinary frequency, urinary urgency, urinary hesitancy, vaginal odor, vaginal bleeding or vaginal discharge Musc: Denies: neck pain, back pain, extremity pain or joint pain Skin/Breast: Denies: rash Neuro: Denies: headache(s), numbness in extremities, weakness in extremities, sensory changes or dizziness PFS ED PFSH: Medical History No pertinent family history Surgical History No pertinent past surgical history Family History Father Diabetes Family history of thyroid problem Heart disease Grandmother Diabetes paternal Stroke maternal Grandfather Diabetes paternal Denies family history of Colon cancer Ovarian cancer Breast cancer Hypertension Uterine cancer Hyperchloremia Physical Exam Const: COMMON NORMALS: no acute distress, patient oriented x3, no limitations, alert and well nourished NUTRITIONAL APPEARANCE: obese ORIENTATION/CONSCIOUSNESS: Yes awake, Yes oriented to person, Yes oriented to place and Yes oriented to time Resp: COMMON NORMALS: normal respiratory effort and clear to auscultation bilaterally AUSCULTATION: clear to auscultation bilaterally Cardio: COMMON NORMALS: regular rhythm RATE: bradycardic RHYTHM: regular rhythm GI: COMMON NORMALS: Normal to inspection, nondistended, normoactive bowel sounds present, Soft to palpation and No hepatosplenomegaly present INSPECTION: Yes normal to inspection AUSCULTATION: Yes normoactive bowel sounds PALPATION: Yes Soft to palpation, Yes Tenderness to palpation present (GI) (throughout lower abdomen/pelvis) and Yes No hepatosplenomegaly present : COMMON NORMALS: Yes no CVA tenderness BLADDER/KIDNEY EXAM: Yes no CVA tenderness Back/Pelvis: COMMON NORMALS: no CVA tenderness Extremity: GENERAL: Yes normal exam except as noted Neuro: TREMAINE COMA SCALE: document GCS findings [place] coma scale eye opening: Spontaneous [place] coma scale verbal response: Orientated [place] coma scale motor response: Obey commands [place] coma scale total score: 15 COMMON NORMALS: patient oriented x3, moves all extremities, no focal motor deficits and no sensory deficits noted SENSORIUM/ORIENTATION: Yes alert, Yes oriented to person, Yes oriented to place and Yes oriented to time Skin: COMMON NORMALS: no rashes or lesions noted GENERAL SKIN EXAM: no rashes or lesions noted Course Consultations: Consultation #1: Dr. Childress-did not recommend any US imaging at this time to rule out torsion; plan will be to see patient in clinic later today and surgery on Vital Signs: Vital signs: Vital Signs Temperature 98.2 F 03/25/23 08:48 Pulse Rate 45 L 03/25/23 10:31 Respiratory Rate 17 03/25/23 10:44 Blood Pressure 134/81 03/25/23 10:31 Pulse Oximetry 96 03/25/23 10:44 Oxygen Delivery Me thod Room Air 03/25/23 10:31 MDM - Abdominal Pain Medical Decision Making We will provide patient further pain medications to treat her discomfort. I spoke to Dr. Childress who is planning on a surgical excision on . He felt there was no need to do additional imaging at this time to rule out torsion. He will see her later today in clinic as scheduled with plan for OR on . She was unable to give urine sample here. Lab Data 03/25/23 09:20 03/25/23 09:20 Labs/Radiology: Laboratory Results WBC 9.27 10^3/uL (3.29-11.43) 03/25/23 09:20 RBC 5.15 10^6/uL (3.85-5.65) 03/25/23 09:20 Hgb 12.30 g/dL (11.27-16.99) 03/25/23 09:20 Hct 40.0 % (36-47) 03/25/23 09:20 MCV 77.7 fl (85-98) L 03/25/23 09:20 MCH 23.9 pg (27-33) L 03/25/23 09:20 MCHC 30.8 g/dL (30-55) 03/25/23 09:20 RDW 16.2 % (12.1-15.1) H 03/25/23 09:20 Plt Count 257 10^3/cmm (157-399) 03/25/23 09:20 MPV 10.6 fL (7.4-10.4) H 03/25/23 09:20 Neut % (Auto) 74.6 % 03/25/23 09:20 Lymph % (Auto) 19.4 % 03/25/23 09:20 [place] % (Auto) 5.3 % 03/25/23 09:20 Eos % (Auto) 0.2 % 03/25/23 09:20 Baso % (Auto) 0.3 % 03/25/23 09:20 Neut # (Auto) 6.91 10^3/uL (1.8-7.7) 03/25/23 09:20 Lymph # (Auto) 1.8 10^3/uL (0.8-4.8) 03/25/23 09:20 [place] # (Auto) 0.5 10^3/uL (0.2-0.9) 03/25/23 09:20 Eos # (Auto) 0.0 10^3/uL (0.0-0.8) 03/25/23 09:20 Baso # (Auto) 0.0 10^3/uL (0.0-0.1) 03/25/23 09:20 Nucleated RBC % (auto) 0 % 03/25/23 09:20 Nucleated RBCs # 0.0 /100WBC 03/25/23 09:20 Sodium 140 mmol/L (136-145) 03/25/23 09:20 Potassium 3.8 mmol/L (3.5-5.1) 03/25/23 09:20 Chloride 103 mmol/L (98-107) 03/25/23 09:20 Carbon Dioxide 26 mmol/L (22-29) 03/25/23 09:20 Anion Gap 14.8 (5-19) 03/25/23 09:20 BUN 4 mg/dL (6-20) L 03/25/23 09:20 Creatinine 0.6 mg/dL (0.5-0.9) 03/25/23 09:20 GFR Calculation 118.2 mL/min (90-130) 03/25/23 09:20 Glucose 111 mg/dL (65-115) 03/25/23 09:20 Calculated Osmolality 288 mOsm/kg (285-295) 03/25/23 09:20 Calcium 9.4 mg/dL (8.5-10.5) 03/25/23 09:20 Total Bilirubin 0.3 mg/dL (0.15-1.2) 03/25/23 09:20 AST 12 U/L (0-32) 03/25/23 09:20 ALT 14 U/L (0-33) 03/25/23 09:20 Alkaline Phosphatase 58 U/L (35-105) 03/25/23 09:20 Total Protein 7.6 g/dL (6.6-8.7) 03/25/23 09:20 Albumin 4.3 g/dL (3.5-5.2) 03/25/23 09:20 Globulin 3.3 g/dL (1.3-4.6) 03/25/23 09:20 HCG, Qual Negative (Negative) 03/25/23 09:20 No radiology studies performed this visit Discharge Plan Discharge Patient Disposition: Home Clinical Impression: Adnexal mass Condition: Stable Prescriptions: New ondansetron 4 mg tablet,disintegrating 4 mg PO Q8H PRN (Reason: nausea and vomiting) Qty: 14 0RF Changed hydrocodone-acetaminophen 5-325 mg tablet 1 - 2 tab PO .q4-6 PRN (Reason: pain) Qty: 20 0RF No Action Midol 500-25 mg Tablet 2 tab PO Q6H PRN (Reason: Menstrual Cramps) ibuprofen 200 mg Tablet 600 mg PO Q6H PRN (Reason: Pain) Discharge Orders: Discharge ED (Routine); Ordered 03/25/23 Ordered By: Francesca Fortune Referrals: Idalia Stearns LPN [Primary Care Provider] - Patient Instructions: Opioid Safety, Pain Management Activity Restrictions/Additional Instructions: As we discussed we will increase the frequency of your pain medications. You can take anywhere from 1 to 2 tablets up to every 4 hours as needed for your discomfort. As we discussed you may try taking the Zofran at a time to prevent nausea. Try to take your medications with food in your stomach. Please follow-up with Dr. Childress later today at your scheduled appointment. Coding Level of Care Code ED Quality Assurance Supervisor Ch[employer] for 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
[2023-03-25 10:31] VITALS: BP 134/81; PULSE 45; RESP 18; O2SAT 96
[2023-03-25 10:44] VITALS: RESP 17; O2SAT 96
[2023-03-25] MEDS: morphine 4 mg/mL SDV 1 mL IVP (10:44)
[2023-03-25] MEDS: ondansetron 2 mg/ML SDV 2 mL 4 MG IVP (10:44)
[2023-03-25 11:18] VITALS: BP 134/81; PULSE 45; RESP 18; O2SAT 95
== END 2023-03-25 11:19 | disposition home or self-care (01) ==
PROVIDERS: Emergency Provider Physician Assistant
DX: N94.89 Other specified conditions associated with female genital organs and menstrual cycle (principal)
CPT/HCPCS: 36415; 80053; 84703; 85025; 88305; 96374; 96375; 99284; J2270; J2405

== ENCOUNTER 2023-03-31 16:42 | Emergency (ER) | payer BC, SELFPAY ==
[2023-03-31 16:58] VITALS: BP 123/82; PULSE 99; RESP 16; TEMP 36.8; O2SAT 98; BMI 31.2
--- NOTE | 2023-03-31 17:08 | ED_ITS ---
HPI - Abdominal Pain General: Chief Complaint: Abdominal Pain Stated Complaint: Pain ride side Time Seen by Provider: 03/31/23 17:07 Source: patient Mode of arrival: ambulatory History of Present Illness: 27-year-old female who presents to the emergency room with complaints of right- sided pelvic pain. She has not had any fever sweats chills dysuria dysuria frequency. She recently was diagnosed with a large ovarian mass which is scheduled to be excised surgically. She is reporting increased pain more to the right side now referred to the emergency room no fever sweats chills nausea vomiting or diarrhea. MD elicited complaint: abdominal pain Onset (ago): week(s) Pain Consistency: constant Location: RLQ Severity: moderate Quality: cramping Exacerbating factors: nothing Relieving factors: nothing Associated Symptoms: Reports GI cramping; Denies anorexia, belching, bloating, change in bowel habits, change in stool character, chills, coffee ground emesis, constipation, diarrhea, dyspepsia, dysuria, excessive flatus, fever(s), heartburn, hematochezia, hematuria, hematemesis, fecal incontinence, loose stools, melena, nausea, poor appetite, syncope and vomiting Related Data: Date of Last Menstrual Period: 03/27/23 Review of Systems Const: Denies: fever(s) or chills Card: Denies: syncope Resp: Denies: dyspnea GI: Reports: GI cramping; Denies: nausea, vomiting, hematemesis, coffee ground emesis, heartburn, diarrhea, constipation, bloating, belching, excessive flatus, fecal incontinence, change in bowel habits, change in stool character, hematochezia or melena : Denies: dysuria or hematuria Musc: Denies: neck pain or back pain Skin/Breast: Denies: rash PFSH ED PFSH: Medical History No pertinent family history Surgical History No pertinent past surgical history Family History Father Diabetes Family history of thyroid problem Heart disease Grandmother Diabetes paternal Stroke maternal Grandfather Diabetes paternal Denies family history of Colon cancer Ovarian cancer Breast cancer Hypertension Uterine cancer Hyperchloremia Female Reproductive History: Date of last menstrual period: 03/27/23 Physical Exam Const: COMMON NORMALS: no acute distress GENERAL APPEARANCE: cooperative and comfortable ORIENTATION/CONSCIOUSNESS: Yes awake, Yes oriented to person, Yes oriented to place and Yes oriented to time HENMT: COMMON NORMALS: normocephalic, atraumatic and hearing grossly normal bilaterally HEAD & SCALP: normocephalic and atraumatic Resp: COMMON NORMALS: normal respiratory effort, No retractions, No use of accessory muscles and clear to auscultation bilaterally AUSCULTATION: clear to auscultation bilaterally Cardio: COMMON NORMALS: regular rate, regular rhythm and No murmurs present (Cardio) RATE: regular rate RHYTHM: regular rhythm GI: COMMON NORMALS: Soft to palpation and No hepatosplenomegaly present AUSCULTATION: Yes normoactive bowel sounds PALPATION: Yes Soft to palpation, No Tenderness to palpation present (GI), No Guarding due to palpation present (GI) and Yes No hepatosplenomegaly present Extremity: COMMON NORMALS: normal to inspection, capillary refill normal, no clubbing, cyanosis or edema, no calf tenderness and no pedal edema Neuro: SENSORIUM/ORIENTATION: Yes oriented to person, Yes oriented to place and Yes oriented to time Skin: COMMON NORMALS: no rashes or lesions noted GENERAL SKIN EXAM: no rashes or lesions noted Course Vital Signs: Vital signs: Vital Signs Temperature 98.3 F 03/31/23 16:58 Pulse Rate 92 03/31/23 19:04 Respiratory Rate 15 03/31/23 18:27 Blood Pressure 122/74 03/31/23 19:04 Pulse Oximetry 96 03/31/23 19:04 Oxygen Delivery Me thod Room Air 03/31/23 19:04 MDM - Abdominal Pain Medical Decision Making No leukocytosis pain completely resolved with single dose of pain medications. Patient is feeling much better repeat abdominal exam no findings at all. We will discharge patient home with hydrocodone use. Follow-up with Dr. Childress as scheduled for the MRI of the pelvis and surgical excision of the ovarian mass. Medical Records I reviewed the patient's medical records. Lab Data I reviewed the patient's lab results. 03/31/23 17:41 03/31/23 17:41 Labs/Radiology: Laboratory Results WBC 7.57 10^3/uL (3.29-11.43) 03/31/23 17:41 RBC 4.80 10^6/uL (3.85-5.65) 03/31/23 17:41 Hgb 11.30 g/dL (11.27-16.99) 03/31/23 17:41 Hct 36.8 % (36-47) 03/31/23 17:41 MCV 76.7 fl (85-98) L 03/31/23 17:41 MCH 23.5 pg (27-33) L 03/31/23 17:41 MCHC 30.7 g/dL (30-55) 03/31/23 17:41 RDW 16.3 % (12.1-15.1) H 03/31/23 17:41 Plt Count 344 10^3/cmm (157-399) 03/31/23 17:41 MPV 10.1 fL (7.4-10.4) 03/31/23 17:41 Neut % (Auto) 66.1 % 03/31/23 17:41 Lymph % (Auto) 25.8 % 03/31/23 17:41 [place] % (Auto) 6.3 % 03/31/23 17:41 Eos % (Auto) 1.1 % 03/31/23 17:41 Baso % (Auto) 0.4 % 03/31/23 17:41 Neut # (Auto) 5.01 10^3/uL (1.8-7.7) 03/31/23 17:41 Lymph # (Auto) 2.0 10^3/uL (0.8-4.8) 03/31/23 17:41 [place] # (Auto) 0.5 10^3/uL (0.2-0.9) 03/31/23 17:41 Eos # (Auto) 0.1 10^3/uL (0.0-0.8) 03/31/23 17:41 Baso # (Auto) 0.0 10^3/uL (0.0-0.1) 03/31/23 17:41 Nucleated RBC % (auto) 0 % 03/31/23 17:41 Nucleated RBCs # 0.0 /100WBC 03/31/23 17:41 Sodium 137 mmol/L (136-145) 03/31/23 17:41 Potassium 3.6 mmol/L (3.5-5.1) 03/31/23 17:41 Chloride 99 mmol/L (98-107) 03/31/23 17:41 Carbon Dioxide 28 mmol/L (22-29) 03/31/23 17:41 Anion Gap 13.6 (5-19) 03/31/23 17:41 BUN 4 mg/dL (6-20) L 03/31/23 17:41 Creatinine 0.5 mg/dL (0.5-0.9) 03/31/23 17:41 GFR Calculation 145.9 mL/min (90-130) H 03/31/23 17:41 Glucose 94 mg/dL (65-115) 03/31/23 17:41 Calculated Osmolality 281 mOsm/kg (285-295) L 03/31/23 17:41 Calcium 9.2 mg/dL (8.5-10.5) 03/31/23 17:41 Total Bilirubin 0.4 mg/dL (0.15-1.2) 03/31/23 17:41 AST 7 U/L (0-32) 03/31/23 17:41 ALT < 5 U/L (0-33) 03/31/23 17:41 Alkaline Phosphatase 53 U/L (35-105) 03/31/23 17:41 Total Protein 7.4 g/dL (6.6-8.7) 03/31/23 17:41 Albumin 3.7 g/dL (3.5-5.2) 03/31/23 17:41 Globulin 3.7 g/dL (1.3-4.6) 03/31/23 17:41 Lipase 46 U/L (13-60) 03/31/23 17:41 Urine Color Yellow (Yellow) 03/31/23 17:35 Urine Appearance Sl hazy (CLEAR) A 03/31/23 17:35 Urine pH 6 (5-7) 03/31/23 17:35 Ur Specific [place] 1.015 (1.005-1.030) 03/31/23 17:35 Urine Protein Neg (Negative) 03/31/23 17:35 Urine Glucose (UA) Norm (Normal) 03/31/23 17:35 Urine Ketones Negative (Negative) 03/31/23 17:35 Urine Blood 2+ (Negative) H 03/31/23 17:35 Urine Nitrate Negative (Negative) 03/31/23 17:35 Urine Bilirubin Neg (Negative) 03/31/23 17:35 Urine Urobilinogen 1 mg/dL (Negative) H 03/31/23 17:35 Ur Leukocyte Esterase Negative (Negative) 03/31/23 17:35 Urine RBC 0-4 /hpf (0-2) H 03/31/23 17:35 Urine WBC 5-10 /hpf (0-5) H 03/31/23 17:35 Ur Squamous Epith Cells 10-15 /hpf (0-5) H 03/31/23 17:35 Amorphous Sediment Not Reportable 03/31/23 17:35 Urine Bacteria 2+ /hpf (NONE) H 03/31/23 17:35 Urine Mucus 3+ /hpf 03/31/23 17:35 No radiology studies performed this visit Discharge Plan Discharge Patient Disposition: Home Clinical Impression: Ovarian cyst Condition: Stable Prescriptions: New hydrocodone-acetaminophen 5-325 mg tablet 1 tab PO Q6H PRN (Reason: pain) Qty: 20 0RF ondansetron HCl 4 mg tablet 4 mg PO Q6H PRN (Reason: nausea and vomiting) Qty: 20 0RF No Action ondansetron 4 mg tablet,disintegrating 4 mg PO Q8H PRN (Reason: nausea and vomiting) Qty: 14 0RF hydrocodone-acetaminophen 5-325 mg tablet 1 - 2 tab PO .q4-6 PRN (Reason: pain) Qty: 20 0RF Midol 500-25 mg Tablet 2 tab PO Q6H PRN (Reason: Menstrual Cramps) ibuprofen 200 mg Tablet 600 mg PO Q6H PRN (Reason: Pain) Discharge Orders: Discharge ED (Routine); Ordered 03/31/23 Ordered By: Reginaldo Sanchez Referrals: Idalia Stearns LPN [Primary Care Provider] - Discharge Diet: Usual diet Discharge Activity: Increase activity as tolerated Patient Instructions: Opioid Safety, Pain Management Activity Restrictions/Additional Instructions: Thank you for choosing [facility] for your healthcare needs today. Please realize this is an emergency room and that we are providing you with a m edical screening exam and this may not be complete and all inclusive of all the testing and or work up that you may need to determine your ailment or severity of your illness. It is very important that you follow up as instructed or that you return to the Emergency Department should you have concerns or if your condition changes or worsens in any way. Follow-up with Dr. Childress as previously planned Coding Level of Care Code ED Look Out Tower Fire Watcher for 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
[2023-03-31 17:36] VITALS: BP 120/74; PULSE 102; O2SAT 96
[2023-03-31 17:51] LABS: Basophils % 0.4 %; Eosinophils # 0.1 10^3/uL (0.0-0.8); Eosinophils % 1.1 %; Hematocrit 36.8 % (36-47); Lymphocytes % 25.8 %; Mean Corpuscular HGB Conc 30.7 g/dL (30-55); Mean Corpuscular Hemoglobin 23.5 pg (27-33); Mean Corpuscular Volume 76.7 fl (85-98); Mean Platelet Volume 10.1 fL (7.4-10.4); Monocytes # 0.5 10^3/uL (0.2-0.9); Monocytes % 6.3 %; Neutrophils # 5.01 10^3/uL (1.8-7.7); Neutrophils % 66.1 %; Nucleated Red Blood Cells % 0 %; Platelet Count 344 10^3/cmm (157-399); Red Cell Distribution Width 16.3 % (12.1-15.1); White Blood Count 7.57 10^3/uL (3.29-11.43)
[2023-03-31 17:55] LABS: Add Urine Culture? No; Add Urine Microscopic? YES; Bacteria Urine 2+ /hpf; Bilirubin Urine Neg (Negative); Blood Urine 2+ (Negative); Glucose Urine UA Norm (Normal); Ketones Urine Negative (Negative); Leukocyte Esterase Urine Negative (Negative); Mucus Urine 3+ /hpf; Nitrate Urine Negative (Negative); Protein Urine Neg (Negative); RBC Urine 0-4 /hpf (0-2); Specific Gravity, Urine 1.015 (1.005-1.030); Urine Appearance SL Hazy (CLEAR); Urine Color Yellow (Yellow); Urobilinogen Urine 1 mg/dL (Negative); pH Urine 6 (5-7)
[2023-03-31 18:03] LABS: Alanine Aminotransferase < 5 U/L (0-33); Albumin Level 3.7 g/dL (3.5-5.2); Alkaline Phosphatase 53 U/L (35-105); Anion Gap 13.6 (5-19); Aspartate Amino Transferase 7 U/L (0-32); Blood Urea Nitrogen 4 mg/dL (6-20); Calcium 9.2 mg/dL (8.5-10.5); Carbon Dioxide 28 mmol/L (22-29); Chloride 99 mmol/L (98-107); Globulin 3.7 g/dL (1.3-4.6); Glomerular Filtration Rate 145.9 mL/min (90-130); Glucose 94 mg/dL (65-115); Lipase 46 U/L (13-60); Osmolality Calculated 281 mOsm/kg (285-295); Potassium 3.6 mmol/L (3.5-5.1); Sodium 137 mmol/L (136-145); Total Bilirubin 0.4 mg/dL (0.15-1.2); Total Protein 7.4 g/dL (6.6-8.7)
[2023-03-31 18:10] VITALS: BP 120/74; PULSE 93; O2SAT 96
[2023-03-31] MEDS: ondansetron 2 mg/ML SDV 2 mL 4 MG IVP (18:26)
[2023-03-31 18:27] VITALS: RESP 15; O2SAT 98
[2023-03-31] MEDS: morphine 4 mg/mL SDV 1 mL IVP (18:27)
[2023-03-31 19:04] VITALS: BP 122/74; PULSE 92; O2SAT 96
== END 2023-03-31 19:22 | disposition home or self-care (01) ==
PROVIDERS: Emergency Provider Family Medicine
DX: N83.201 Unspecified ovarian cyst, right side (principal)
CPT/HCPCS: 36415; 80053; 81001; 83690; 85025; 96374; 96375; 99284; J2270; J2405

== ENCOUNTER 2023-07-19 16:40 | Emergency (ER) | payer BC, SELFPAY ==
[2023-07-19 16:45] VITALS: BP 131/79; PULSE 96; RESP 20; O2SAT 100; BMI 41.1
[2023-07-19 17:49] LABS: Basophils % 0.5 %; Eosinophils # 0.1 10^3/uL (0.0-0.8); Eosinophils % 0.9 %; Lymphocytes # 2.4 10^3/uL (0.8-4.8); Lymphocytes % 27.1 %; Mean Corpuscular HGB Conc 29.8 g/dL (30-55); Mean Corpuscular Hemoglobin 22.3 pg (27-33); Mean Platelet Volume 10.2 fL (7.4-10.4); Monocytes # 0.3 10^3/uL (0.2-0.9); Monocytes % 3.4 %; Neutrophils # 5.98 10^3/uL (1.8-7.7); Neutrophils % 67.6 %; Nucleated Red Blood Cells % 0 %; Platelet Count 272 10^3/cmm (157-399); Red Cell Distribution Width 17.7 % (12.1-15.1); White Blood Count 8.84 10^3/uL (3.29-11.43)
--- NOTE | 2023-07-19 17:58 | USR_ITS ---
PROCEDURE INFORMATION: Exam: US Duplex Artery or Vein of the Abdominal and/or Reproductive Organs, Limited Liver Exam date and time: 07/19/2023 5:12 PM Age: 27 years old Clinical indication: Abdominal pain; Localized; Right upper quadrant (ruq); Additional info: Right upper quadrant colicky pain concerning for cholecystit TECHNIQUE: Imaging protocol: Real-time duplex ultrasound scan of the arterial or venous flow with color Doppler flow and spectral waveform analysis with image documentation. Limited Duplex exam focused on the liver and portal venous system. Duplex exam was performed to evaluate for vascular conditions. COMPARISON: US pelvic complete* [id number] 05/05/2022 12:42 PM FINDINGS: Portal venous: The portal vein is patent. Spectral evaluation shows normal waveforms. Antegrade flow is noted. PROCEDURE INFORMATION: Exam: US Abdomen, Limited; Right Upper Quadrant Exam date and time: 07/19/2023 5:12 PM Age: 27 years old Clinical indication: Abdominal pain; Localized; Right upper quadrant (ruq); Additional info: Right upper quadrant colicky pain concerning for cholecystit TECHNIQUE: Imaging protocol: Real time ultrasound of the abdomen with image documentation. Limited exam focused on the right upper quadrant. COMPARISON: US pelvic complete* [id number] 05/05/2022 12:42 PM FINDINGS: Liver: The liver is normal. No hepatic masses are identified. Gallbladder: The gallbladder is normal. The llama farmer reports a negative sonographic Sweeney's sign. Biliary ducts: There is no evidence of intra or extrahepatic ductal dilatation. The common bile duct measures 5 mm. Pancreas: Visualized pancreas is unremarkable. Right kidney: The right kidney is normal. There is no evidence of renal calcification or hydronephrosis. The right kidney measures 12.8 cm. Aorta: The aorta and inferior vena cava are unremarkable. US/US abdomen limited [id number] IMPRESSION: Patent portal vein with normal directional flow and normal waveforms. IMPRESSION: Unremarkable right upper quadrant ultrasound.
[2023-07-19 18:10] LABS: Alanine Aminotransferase 19 U/L (0-33); Alkaline Phosphatase 92 U/L (35-105); Anion Gap 15.7 (5-19); Aspartate Amino Transferase 33 U/L (0-32); Blood Urea Nitrogen 6 mg/dL (6-20); Calcium 9.4 mg/dL (8.5-10.5); Carbon Dioxide 23 mmol/L (22-29); Chloride 104 mmol/L (98-107); Creatinine Clr Calc Pharmacy 166.7828; Glomerular Filtration Rate 118.2 mL/min (90-130); Glucose 162 mg/dL (65-115); Lipase 37 U/L (13-60); Osmolality Calculated 289 mOsm/kg (285-295); Potassium 3.7 mmol/L (3.5-5.1); Sodium 139 mmol/L (136-145); Total Bilirubin 0.4 mg/dL (0.15-1.2)
[2023-07-19 18:59] LABS: Bilirubin Urine Neg (Negative); Blood Urine Neg (Negative); Glucose Urine UA Norm (Normal); Ketones Urine 1+ (Negative); Nitrate Urine Negative (Negative); Protein Urine Neg (Negative); Urine Appearance Clear (CLEAR); Urine Color Dark Yellow (Yellow); pH Urine 5 (5-7)
--- NOTE | 2023-07-19 18:59 | ED_ITS ---
HPI - Abdominal Pain 2 General: Chief Complaint: Abdominal Pain Stated Complaint: upper abd pain, sweating, sob Time Seen by Provider: 07/19/23 17:33 History of Present Illness: The patient presents to the ER with a chief complaint of severe pain that began around 4 o'clock, making it difficult for them to breathe. They describe the pain as if something was sitting on top of their stomach. The patient experienced profuse sweating, shaking, and initially could not vomit. Eventually, they were able to vomit, which provided some relief from the pain. This is the first time the patient has experienced such symptoms. They report having nausea and profuse sweating during the episode, feeling extremely hot and then suddenly cold. The patient has a past surgical history of an abdominal surgery in April for an 11-centimeter mass on their left ovary. The mass was determined to be a non- cancerous cyst that had cut off blood supply and grown. Associated Symptoms: Denies fever(s) Review of Systems 2 General: Reports: 10 or more systems reviewed and unremarkable except in HPI and below Const: Denies: fever(s) Card: Denies: palpitations or edema Resp: Denies: dyspnea Skin/Breast: Denies: rash PFSH ED 2 PFSH: Medical History No pertinent family history Surgical History No pertinent past surgical history Family History Father Diabetes Family history of thyroid problem Heart disease Grandmother Diabetes paternal Stroke maternal Grandfather Diabetes paternal Denies family history of Colon cancer Ovarian cancer Breast cancer Hypertension Uterine cancer Hyperchloremia Physical Exam 2 Const: COMMON NORMALS: no acute distress, patient oriented x3, healthy appearing, alert and well nourished HENMT: COMMON NORMALS: normocephalic HEAD & SCALP: normocephalic Eye: COMMON NORMALS: EOMs intact bilaterally Neck/C-Spine: COMMON NORMALS: full ROM and supple Resp: COMMON NORMALS: normal respiratory effort, No retractions and clear to auscultation bilaterally AUSCULTATION: clear to auscultation bilaterally Cardio: COMMON NORMALS: regular rate, regular rhythm, No gallops present (Cardio) and No murmurs present (Cardio) RATE: regular rate RHYTHM: r egular rhythm GI: COMMON NORMALS: Soft to palpation PALPATION: Yes Soft to palpation, Yes Tenderness to palpation present (GI) Details: RUQ, No Guarding due to palpation present (GI), No Rigid due to palpation and No Rebound tenderness present Extremity: GENERAL: Yes normal exam except as noted Neuro: COMMON NORMALS: patient oriented x3 SENSORIUM/ORIENTATION: Yes alert Skin: COMMON NORMALS: no rashes or lesions noted GENERAL SKIN EXAM: no rashes or lesions noted Course 2 Vital Signs: Vital signs: Vital Signs Temperature 98.1 F 07/19/23 20:35 Pulse Rate 96 07/19/23 16:45 Respiratory Rate 20 H 07/19/23 16:45 Blood Pressure 131/99 07/19/23 20:00 Pulse Oximetry 100 07/19/23 20:00 Oxygen Delivery Me thod Room Air 07/19/23 20:00 MDM - Abdominal Pain Medical Decision Making 27-year-old female presenting to the emergency department for evaluation of abdominal pain. Patient's ultrasound was negative. Her laboratory workup significant for elevated AST, urine ketones, urine Brilinta APPLICATIONS SUPPORT LEAD. CT scan showed choledocholithiasis without cholecystitis. Patient needed ERCP as she was still having pain and starting to show evidence of liver injury. [facility] excepted transfer. Dr Durand admitting. Differential Diagnosis Likely abdominal pain, acute appendicitis, calculus of kidney, constipation and diverticulitis Lab Data 07/19/23 17:44 07/19/23 17:44 Labs/Radiology: Radiology Impressions Abdomen Ultrasound 07/19/23 17:58 IMPRESSION: Patent portal vein with normal directional flow and normal waveforms. IMPRESSION: Unremarkable right upper quadrant ultrasound. Abdomen/Pelvis CT 07/19/23 19:02 IMPRESSION: 1. Choledocholithiasis, new compared to prior study. Mild common bile duct dilatation. Recommend GI consultation and ERCP. 2. Cholelithiasis without evidence of cholecystitis. Laboratory Results WBC 8.84 10^3/uL (3.29-11.43) 07/19/23 17:44 RBC 5.60 10^6/uL (3.85-5.65) 07/19/23 17:44 Hgb 12.50 g/dL (11.27-16.99) 07/19/23 17:44 Hct 42.0 % (36-47) 07/19/23 17:44 MCV 75.0 fl (85-98) L 07/19/23 17:44 MCH 22.3 pg (27-33) L 07/19/23 17:44 MCHC 29.8 g/dL (30-55) L 07/19/23 17:44 RDW 17.7 % (12.1-15.1) H 07/19/23 17:44 Plt Count 272 10^3/cmm (157-399) 07/19/23 17:44 MPV 10.2 fL (7.4-10.4) 07/19/23 17:44 Neut % (Auto) 67.6 % 07/19/23 17:44 Lymph % (Auto) 27.1 % 07/19/23 17:44 [place] % (Auto) 3.4 % 07/19/23 17:44 Eos % (Auto) 0.9 % 07/19/23 17:44 Baso % (Auto) 0.5 % 07/19/23 17:44 Neut # (Auto) 5.98 10^3/uL (1.8-7.7) 07/19/23 17:44 Lymph # (Auto) 2.4 10^3/uL (0.8-4.8) 07/19/23 17:44 [place] # (Auto) 0.3 10^3/uL (0.2-0.9) 07/19/23 17:44 Eos # (Auto) 0.1 10^3/uL (0.0-0.8) 07/19/23 17:44 Baso # (Auto) 0.0 10^3/uL (0.0-0.1) 07/19/23 17:44 Nucleated RBC % (auto) 0 % 07/19/23 17:44 Nucleated RBCs # 0.0 /100WBC 07/19/23 17:44 Sodium 139 mmol/L (136-145) 07/19/23 17:44 Potassium 3.7 mmol/L (3.5-5.1) 07/19/23 17:44 Chloride 104 mmol/L (98-107) 07/19/23 17:44 Carbon Dioxide 23 mmol/L (22-29) 07/19/23 17:44 Anion Gap 15.7 (5-19) 07/19/23 17:44 BUN 6 mg/dL (6-20) 07/19/23 17:44 Creatinine 0.6 mg/dL (0.5-0.9) 07/19/23 17:44 GFR Calculation 118.2 mL/min (90-130) 07/19/23 17:44 Glucose 162 mg/dL (65-115) H 07/19/23 17:44 Calculated Osmolality 289 mOsm/kg (285-295) 07/19/23 17:44 Calcium 9.4 mg/dL (8.5-10.5) 07/19/23 17:44 Total Bilirubin 0.4 mg/dL (0.15-1.2) 07/19/23 17:44 AST 33 U/L (0-32) H 07/19/23 17:44 ALT 19 U/L (0-33) 07/19/23 17:44 Alkaline Phosphatase 92 U/L (35-105) 07/19/23 17:44 Total Protein 8.0 g/dL (6.6-8.7) 07/19/23 17:44 Albumin 4.0 g/dL (3.5-5.2) 07/19/23 17:44 Globulin 4.0 g/dL (1.3-4.6) 07/19/23 17:44 Lipase 37 U/L (13-60) 07/19/23 17:44 HCG, Qual Negative (Negative) 07/19/23 18:51 Urine Color Dark yellow (Yellow) 07/19/23 18:50 Urine Appearance Clear (CLEAR) 07/19/23 18:50 Urine pH 5 (5-7) 07/19/23 18:50 Ur Specific [place] 1.020 (1.005-1.030) 07/19/23 18:50 Urine Protein Neg (Negative) 07/19/23 18:50 Urine Glucose (UA) Norm (Normal) 07/19/23 18:50 Urine Ketones 1+ (Negative) H 07/19/23 18:50 Urine Blood Neg (Negative) 07/19/23 18:50 Urine Nitrate Negative (Negative) 07/19/23 18:50 Urine Bilirubin Neg (Negative) 07/19/23 18:50 Urine Urobilinogen 1 mg/dL (Negative) H 07/19/23 18:50 Ur Leukocyte Esterase Negative (Negative) 07/19/23 18:50 Urine RBC 0-4 /hpf (0-2) H 07/19/23 18:50 Urine WBC 0-4 /hpf (0-5) H 07/19/23 18:50 Ur Squamous Epith Cells 5-10 /hpf (0-5) H 07/19/23 18:50 Amorphous Sediment 1+ /hpf 07/19/23 18:50 Urine Bacteria 2+ /hpf (NONE) H 07/19/23 18:50 Hyaline Casts 0-4 /lpf H 07/19/23 18:50 Urine Mucus 2+ /hpf 07/19/23 18:50 All radiology interpretation(s) finalized by discharge Discharge Plan Discharge Patient Disposition: Xfer Short-Term Hosp Clinical Impression: Choledocholithiasis with obstruction Qualifiers: Cholecystitis presence: without cholecystitis Qualified Code(s): K80.51 - Calculus of bile duct without cholangitis or cholecystitis with obstruction Condition: Stable Discharge Orders: Transfer Out of Facility (Order); Ordered 07/19/23 Ordered By: Javier Law Referrals: Idalia Stearns LPN [Primary Care Provider] - Coding Level of Care Code ED Catering Director for 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
[2023-07-19 19:00] LABS: HCG Qualitative Urine. Negative (Negative)
[2023-07-19 19:00] LABS: Leukocyte Esterase Urine Negative (Negative); Urobilinogen Urine 1 mg/dL (Negative)
--- NOTE | 2023-07-19 19:02 | CTR_ITS ---
PROCEDURE INFORMATION: Exam: CT Abdomen And Pelvis With Contrast Exam date and time: 07/19/2023 7:22 PM Age: 27 years old Clinical indication: Abdominal pain; Localized; Upper; Prior surgery; Surgery date: 1-6 months; Surgery type: 5 csections, cyst on left ovary removed and tubal in April; Additional info: Right upper quadrant abdominal pain, patient has history of abdominal surgery. Rule out TECHNIQUE: Imaging protocol: Computed tomography of the abdomen and pelvis with contrast. Radiation optimization: All CT scans at this facility use at least one of these dose optimization techniques: automated exposure control; mA and/or kV adjustment per patient size (includes targeted exams where dose is matched to clinical indication); or iterative reconstruction. Contrast material: OMNI 350; Contrast volume: 100 ml; Contrast route: INTRAVENOUS (IV); COMPARISON: CT kidney stone [id number] 10/17/2022 2:23 PM RADIATION DOSE METRICS: Total DLP (mGy-cm): 1089 FINDINGS: Lungs: The lung bases are clear. Liver: The liver is normal. No hepatic masses are identified. Gallbladder and bile ducts: Gallstones are identified within the gallbladder. There is no gallbladder wall thickening or pericholecystic inflammatory change. 6 mm calcification in the distal common bile duct with possible contiguous smaller calcification just proximal.. Mild common bile duct dilatation measuring up to 7 mm. Pancreas: The pancreas is normal. Spleen: The spleen is normal. Adrenal glands: The adrenal glands are normal. Kidneys and ureters: There is normal enhancement of the kidneys. No renal calcifications are identified. There is no hydronephrosis. Stomach and bowel: There is no large or small bowel obstruction. There is no evidence of bowel wall thickening. Appendix: A normal appendix is identified. Intraperitoneal space: No inflammatory changes are identified. There is no free fluid or fluid collection seen. There is no pneumoperitoneum. Vasculature: The aorta is normal in course and caliber. No significant atherosclerotic calcifications are present. Lymph nodes: There are no enlarged retroperitoneal or mesenteric lymph nodes. Urinary bladder: The bladder is unremarkable. Reproductive: The uterus is present. Bones/joints: No acute osseous abnormalities are seen. Soft tissues: The soft tissues are within normal limits. CT/CT abdomen pelvis w con* [id number] IMPRESSION: 1. Choledocholithiasis, new compared to prior study. Mild common bile duct dilatation. Recommend GI consultation and ERCP. 2. Cholelithiasis without evidence of cholecystitis.
[2023-07-19 19:16] LABS: RBC Urine 0-4 /hpf (0-2)
[2023-07-19 19:17] LABS: Amorphous Sediment Urine 1+ /hpf; Bacteria Urine 2+ /hpf; Hyaline Casts Urine 0-4 /lpf; Mucus Urine 2+ /hpf; WBC Urine 0-4 /hpf (0-5)
[2023-07-19] MEDS: iohexol 350 mg/mL 500 mL Btl (per mL) IV (19:23)
[2023-07-19 20:00] VITALS: BP 131/99; O2SAT 100
[2023-07-19 20:35] VITALS: TEMP 36.7
[2023-07-19] MEDS: HYDROmorphone 1 mg/mL INJ 1 mL IVP (21:58)
[2023-07-19 21:59] VITALS: BP 119/71; PULSE 60; RESP 16; O2SAT 97
[2023-07-19] MEDS: ondansetron 2 mg/ML SDV 2 mL 4 MG IVP (22:13)
== END 2023-07-19 23:14 | disposition short-term general hospital (02) ==
PROVIDERS: Family Medicine; Emergency Provider General Practice
DX: K80.51 Calculus of bile duct without cholangitis or cholecystitis with obstruction (principal)
CPT/HCPCS: 36415; 74177; 76705; 80053; 81001; 81025; 83690; 85025; 96374; 96375; 99285; J1170; J2405; Q9967